=== PATIENT | male | born 1945 | race Caucasian/White ===

== ENCOUNTER 2020-04-20 01:06 | Inpatient (IN) | payer MEDICARE, OTHER ==
[~2020-04-20] VITALS: Ht 172.7 cm; Wt 64.8 kg
[2020-04-20] MEDS ORDERED: ASPIRIN CHEWABLE 81 MG TABLET. PO ONE (01:15)
[2020-04-20 01:23] LABS: BASO % 1 % (0-3); EOS # 0.1 x10^3/uL (0.0-0.7); EOS % 2 % (0-3); HEMATOCRIT 30.4 % (39.0-53.0); HEMOGLOBIN 10.8 g/dL (13.0-17.5); LYMPH # 1.8 x10^3/uL (1.0-4.8); LYMPH % 40 % (24-48); MEAN CORPUSCULAR HEMOGLOBIN 35 pg (25-35); MEAN CORPUSCULAR HGB CONC 36 g/dL (31-37); MEAN CORPUSCULAR VOLUME 98 fL (79-100); MONO # 0.7 x10^3/uL (0.0-1.1); MONO % 15 % (0-9); NEUT # 1.9 x10^3/uL (1.8-7.7); NEUT % 42 % (31-73); PLATELET COUNT 167 x10^3/uL (140-400); RED BLOOD COUNT 3.11 x10^6/uL (4.30-5.70); RED CELL DISTRIBUTION WIDTH 12.2 % (11.5-14.5); WHITE BLOOD COUNT 4.5 x10^3/uL (4.0-11.0)
[2020-04-20 01:31] LABS: PROTHROMBIN TIME PATIENT 13.4 SEC (11.7-14.0)
[2020-04-20 01:34] LABS: D-DIMER 0.99 ug/mlFEU (0.00-0.50)
[2020-04-20 01:39] LABS: ALBUMIN 2.6 g/dL (3.4-5.0); ALBUMIN/GLOBULIN RATIO 1.2 (1.0-1.7); CALCIUM 8.4 mg/dL (8.5-10.1); CREATININE 0.6 mg/dL (0.7-1.3); GFR 132.1; TOTAL BILIRUBIN 0.5 mg/dL (0.2-1.0); TOTAL PROTEIN 4.8 g/dL (6.4-8.2)
[2020-04-20 01:43] LABS: POTASSIUM 2.4 mmol/L (3.5-5.1)
[2020-04-20] MEDS ORDERED: POTASSIUM CHLORIDE 20MEQ 100 ML IV SCH (01:45)
--- NOTE | 2020-04-20 01:46 | RAD ---
PQRS Compliance Statement: One or more of the following individualized dose reduction techniques were utilized for this examinat ion: 1. Automated exposure control 2. Adjustment of the mA and/or kV according to patient size 3. Use of iterative reconstruction technique CT HEAD WITHOUT CONTRAST History: Reason: fall / Spl. Instructions: / History: Comparison: None. Technique: Axial images are obtained of the head from the skull base through the vertex without IV co ntrast. Findings: No mass-effect, midline shift, extra-axial fluid collection, hemorrhage, or obvious acute infarction is identified. Basilar cisterns are patent. The ventricles and sulci are prominent, consistent with age-related cerebral atrophy. There is perive ntricular white matter hypoattenuation. This is a nonspecific finding but is commonly due to chronic small vessel ischemic disease. Bone windows demonstrate no acute calvarial abnormality. The visualized paranasal sinuses are clear. Mastoid air cells are well aerated. IMPRESSION: 1. No acute intracranial abnormality. 2. Age-related cerebral atrophy and periventricular white matter changes probably due to chronic sma ll vessel ischemic disease. Electronically signed by: Cirilo Abdul MD (04/20/2020 1:44 AM) [facility]
[2020-04-20 02:00] LABS: BILIRUBIN,URINE NEGATIVE (NEG); CLARITY,URINE CLEAR; COLOR,URINE YELLOW; NITRITE,URINE NEGATIVE (NEG); PH,URINE 6.5 (<5.0-8.0); PROTEIN,URINE NEGATIVE (NEG-TRACE); UROBILINOGEN,URINE 0.2 mg/dL (0.2 mg/dL)
[2020-04-20] MEDS ORDERED: MORPHINE SULFATE 4 MG/ML VIAL. IV ONE (02:00)
[2020-04-20] MEDS: POTASSIUM CHLORIDE 10MEQ 100 ML IV SCH ×10 (02:10→16:00)
[2020-04-20 02:19] LABS: AMORPHOUS SEDIMENT,UR PRESENT /HPF; BACTERIA,URINE 0 /HPF (0-FEW); RBC,URINE 0 /HPF (0-2)
--- NOTE | 2020-04-20 02:27 | RAD ---
XR CHEST 1V Clinical Indication: Reason: chest pain Comparison: None. Findings: Atherosclerotic aortic arch. The cardiomediastinal silhouette is normal. Pulmonary vasculature upper limits of normal. Lungs are clear. There is no pneumothorax. No pleural effusion is appreciated. No a cute bone abnormality. IMPRESSION: No acute cardiopulmonary process. Electronically signed by: Cirilo Abdul MD (04/20/2020 2:25 AM) [facility]
--- NOTE | 2020-04-20 02:32 | EKG ---
[facility] [address] [place] [address] Test Date: 2020-04-20 Test Time: 01:14:37 Pat Name: SATHISH SMYTH Department: Room: Gender: M Instruction Assistant Principal: : 1945 Requested By: SARAH IRENE Order Number: [id number] Reading MD: Measurements Intervals [place] Rate: 68 P: 60 SD: 144 QRS: 80 QRSD: 106 T: 63 QT: 488 QTc: 525 Interpretive Statements SINUS RHYTHM VENTRICULAR PREMATURE COMPLEX(ES) QRS(T) CONTOUR ABNORMALITY CONSIDER ANTEROLATERAL MYOCARDIAL DAMAGE CONSIDER INFERIOR MYOCARDIAL DAMAGE PROLONGED QT ABNORMAL ECG RI6.01 No previous ECG available for comparison
--- NOTE | 2020-04-20 02:34 | EKG ---
[facility] [address] [place] [address] Test Date: 2020-04-20 Test Time: 01:18:57 Pat Name: SATHISH SMYTH Department: Room: Gender: M Inpatient Pharmacist: : 1945 Requested By: SARAH IRENE Order Number: [id number] Reading MD: Measurements Intervals [place] Rate: 70 P: 60 DE: 148 QRS: 81 QRSD: 106 T: 74 QT: 474 QTc: 515 Interpretive Statements SINUS RHYTHM ATRIAL PREMATURE COMPLEX(ES) PROLONGED QT NO SPECIFIC ECG ABNORMALITIES RI6.01 Compared to ECG 04/20/2020 01:14:37 No significant changes
--- NOTE | 2020-04-20 03:28 | PHYS DOC ---
Past Medical History Past Medical History: Alcoholism, High Cholesterol, Hypertension, [place] Past Surgical History: Other Additional Past Surgical Histo: Stent placement Smoking Status: Unknown if ever smoked Alcohol Use: Heavy Adult General Chief Complaint Chief Complaint: CHEST PAIN HPI HPI Patient is a 74 year old male with a known past medical history including alcoholism and hypertension now presenting emergency department after reported syncopal episode. According to EMS they were called and the patient has been complaining of chest pain and then had a near syncopal event while at home. States that the family found him on the ground where he became slightly unconscious and then dated that he had chest compressions and give the patient a sublingual nitroglycerin. Upon arrival EMS stated that the patient was arousable and her x1. Uncertain the patient had a fall. Patient is complaining of pain everywhere stating that "everything hurts and I feel terrible everywhere." Patient does admit to chest pain but cannot remember if he fell either. Patient appears to be a poor historian at this time. Review of Systems Review of Systems Constitutional: Denies fever or chills [] Eyes: Denies change in visual acuity, redness, or eye pain [] HENT: Denies nasal congestion or sore throat [] Respiratory: Denies cough or shortness of breath [] Cardiovascular: No additional information not addressed in HPI [] GI: Denies abdominal pain, nausea, vomiting, bloody stools or diarrhea [] : Denies dysuria or hematuria [] Musculoskeletal: Denies back pain or joint pain [] Integument: Denies rash or skin lesions [] Neurologic: Denies headache, focal weakness or sensory changes [] Endocrine: Denies polyuria or polydipsia [] All other systems were reviewed and found to be within normal limits, except as documented in this note. Current Medications Current Medications Current Medications Medications (Trade) Dose Ordered Sig/Terry Start Time Stop Time Status Last Admin Dose Admin Aspirin (Aspirin Chewable) 324 mg 1X ONCE 04/20/20 01:15 04/20/20 01:25 DC Morphine Sulfate (Morphine Sulfate) 2 mg 1X ONCE 04/20/20 03:30 04/20/20 03:31 04/20/20 03:16 2 MG Potassium Chloride/Water 100 ml @ 100 mls/hr Q1H 04/20/20 02:00 04/20/20 05:59 04/20/20 02:56 100 MLS/HR Allergies Allergies Allergies Coded Allergies Type Severity Reaction Last Updated Verified No Known Drug Allergies 04/20/20 No Physical Exam Physical Exam Constitutional: Well developed, well nourished, no acute distress, non-toxic appearance. [] HENT: Normocephalic, atraumatic, bilateral external ears normal, oropharynx moist, no oral exudates, nose normal. [] Eyes: PERRLA, EOMI, conjunctiva normal, no discharge. [] Neck: Normal range of motion, no tenderness, supple, no stridor. [] Cardiovascular:Heart rate regular rhythm, no murmur [] Lungs & Thorax: Bilateral breath sounds clear to auscultation [] Abdomen: Bowel sounds normal, soft, no tenderness, no masses, no pulsatile masses. [] Skin: Warm, dry, no erythema, no rash. [] Back: No tenderness, no CVA tenderness. [] Extremities: No tenderness, no cyanosis, no clubbing, ROM intact, no edema. [] Neurologic: Alert and oriented X 3, normal motor function, normal sensory function, no focal deficits noted. [] Psychologic: Affect normal, judgement normal, mood normal. [] Current Patient Data Vital Signs Vital Signs Date Time Temp Pulse Resp B/P (MAP) Pulse Ox O2 Delivery O2 Flow Rate FiO2 04/20/20 03:16 98 04/20/20 02:40 68 18 126/59 (81) Nasal Cannula 2.0 04/20/20 01:06 97.6 97.6 Lab Values Laboratory Tests Test 04/20/20 01:12 04/20/20 01:50 White Blood Count 4.5 x10^3/uL (4.0-11.0) Red Blood Count 3.11 x10^6/uL (4.30-5.70) L Hemoglobin 10.8 g/dL (13.0-17.5) L Hematocrit 30.4 % (39.0-53.0) L Mean Corpuscular Volume 98 fL (79-100) Mean Corpuscular Hemoglobin 35 pg (25-35) Mean Corpuscular Hemoglobin Concent 36 g/dL (31-37) Red Cell Distribution Width 12.2 % (11.5-14.5) Platelet Count 167 x10^3/uL (140-400) Neutrophils (%) (Auto) 42 % (31-73) Lymphocytes (%) (Auto) 40 % (24-48) Monocytes (%) (Auto) 15 % (0-9) H Eosinophils (%) (Auto) 2 % (0-3) Basophils (%) (Auto) 1 % (0-3) Neutrophils # (Auto) 1.9 x10^3/uL (1.8-7.7) Lymphocytes # (Auto) 1.8 x10^3/uL (1.0-4.8) Monocytes # (Auto) 0.7 x10^3/uL (0.0-1.1) Eosinophils # (Auto) 0.1 x10^3/uL (0.0-0.7) Basophils # (Auto) 0.0 x10^3/uL (0.0-0.2) Prothrombin Time 13.4 SEC (11.7-14.0) Prothrombin Time INR 1.1 (0.8-1.1) D-Dimer (Bev) 0.99 ug/mlFEU (0.00-0.50) H Sodium Level 123 mmol/L (136-145) L Potassium Level 2.4 mmol/L (3.5-5.1) *L Chloride Level 86 mmol/L (98-107) L Carbon Dioxide Level 24 mmol/L (21-32) Anion Gap 13 (6-14) Blood Urea Nitrogen 10 mg/dL (8-26) Creatinine 0.6 mg/dL (0.7-1.3) L Estimated GFR (Cockcroft-Gault) 132.1 BUN/Creatinine Ratio 17 (6-20) Glucose Level 95 mg/dL (70-99) Calcium Level 8.4 mg/dL (8.5-10.1) L Magnesium Level 1.0 mg/dL (1.8-2.4) L Total Bilirubin 0.5 mg/dL (0.2-1.0) Aspartate Amino Transferase (AST) 27 U/L (15-37) Alanine Aminotransferase (ALT) 28 U/L (16-63) Alkaline Phosphatase 42 U/L (46-116) L Creatine Kinase 84 U/L (39-308) Troponin I Quantitative 0.022 ng/mL (0.000-0.055) SL-Wky-E-Type Natriuretic Peptide 743 pg/mL (0-124) H Total Protein 4.8 g/dL (6.4-8.2) L Albumin 2.6 g/dL (3.4-5.0) L Albumin/Globulin Ratio 1.2 (1.0-1.7) Lipase 293 U/L (73-393) Ethyl Alcohol Level 101 mg/dL (0-10) H Urine Collection Type Unknown Urine Color Yellow Urine Clarity Clear Urine pH 6.5 (<5.0-8.0) Urine Specific [place] <=1.005 (1.000-1.030) Urine Protein Negative mg/dL (NEG-TRACE) Urine Glucose (UA) Negative mg/dL (NEG) Urine Ketones (Stick) Negative mg/dL (NEG) Urine Blood Negative (NEG) Urine Nitrite Negative (NEG) Urine Bilirubin Negative (NEG) Urine Urobilinogen Dipstick 0.2 mg/dL (0.2 mg/dL) Urine Leukocyte Esterase Negative (NEG) Urine RBC 0 /HPF (0-2) Urine WBC 1-4 /HPF (0-4) Urine Squamous Epithelial Cells Few /LPF Urine Amorphous Sediment Present /HPF Urine Bacteria 0 /HPF (0-FEW) Laboratory Tests 04/20/20 01:12 Laboratory Tests 04/20/20 01:12 EKG EKG [] Radiology/Procedures Radiology/Procedures [] Course & Med Decision Making Course & Med Decision Making Pertinent Labs and Imaging studies reviewed. (See chart for details) 74M presenting the emergency department after apparent syncopal episode of uncertain etiology. The patient fell and potentially struck his head will obtain a CT scan of the head to make sure there is no evidence of intracranial hemorrhage. Also to a broad work-up to make sure there is no evidence of acute coronary or infectious etiology. 0346 -labs reviewed and the patient is noted to have a severe hyperkalemia as well as what appears to be hyponatremia hypochloremia possibly secondary to alcohol consumption or dehydration. At this time given the patient's age and risk factors best course of action is to admit the patient for observation to make sure there is no dangerous cause of the patient's syncopal event. Dragon Disclaimer Dragon Disclaimer This electronic medical record was generated, in whole or in part, using a voice recognition dictation system. Departure Departure Impression: Primary Impression: Chest pain Disposition: 09 ADMITTED INPT THIS HOSP Condition: GOOD Referrals: UNKNOWN PCP NAME (PCP) SARAH IRENE MD Apr 20, 2020 03:28
[2020-04-20] MEDS ORDERED: ONDANSETRON PF 4 MG/2 ML VIAL. IV PRN (03:30)
[2020-04-20] MEDS ORDERED: MORPHINE SULFATE 2 MG/ML VIAL. IV ONE (03:30)
[2020-04-20] MEDS ORDERED: MORPHINE SULFATE 4 MG/ML VIAL. IV PRN (03:30)
[2020-04-20 05:00] VITALS: BP 134/63
--- NOTE | 2020-04-20 05:50 | EKG ---
[facility] [address] [place] [address] Test Date: 2020-04-20 Test Time: 02:45:13 Pat Name: SATHISH SMYTH Department: Room: Gender: M Clinic Supervisor: : 1945 Requested By: SARAH IRENE Order Number: [id number] Reading MD: Measurements Intervals [place] Rate: 65 P: HI: QRS: 79 QRSD: 110 T: 63 QT: 480 QTc: 500 Interpretive Statements IRREGULAR RHYTHM, NO P-WAVE FOUND VENTRICULAR PREMATURE COMPLEX(ES) PROLONGED QT ABNORMAL ECG RI6.02 No previous ECG available for comparison
[2020-04-20 07:00] VITALS: BP 144/79
--- NOTE | 2020-04-20 08:00 | NUR ---
At approximately 0515, patient was admitted to from the ED. Patient alert to self and situation. Patient not alert to time or place. Bed locked and in low position. Call light within reach and bed alarm on. All vital signs stable with patient on 2 L NC and O2 sats 97-100%. Patient resting comfortably in bed. No other concerns at this time.
--- NOTE | 2020-04-20 08:11 | PDOC1 ---
History and Physical Date of Service: DOS: DATE: 04/20/20 TIME: 08:09 Chief Complaint: Chief Complain: unresponsive and chest pain History of Present Illness: HPI: 74 year old male with a known past medical history including alcoholism and hypertension now presenting emergency department after reported syncopal episode. According to EMS they were called and the patient has been complaining of chest pain and then had a near syncopal event while at home. States that the family found him on the ground where he became slightly unconscious and then stated that he had chest compressions and give the patient a sublingual nitroglycerin. Upon arrival EMS stated that the patient was arousable and her x1. Uncertain the patient had a fall. Patient is complaining of pain everywher e stating that "everything hurts and I feel terrible everywhere." Patient does admit to chest pain but cannot remember if he fell either. Patient appears to be a poor historian at this time. Past Medical/Surgical History: PMH/PSH: Past Medical History: Alcoholism, High Cholesterol, Hypertension, [place] Past Surgical History: Stent placement Allergies: Allergies: Coded Allergies: No Known Drug Allergies (Unverified , 04/20/20) Family History: Family History: Reviewed with no relevant findings Social History: Social History: Smoking Status: Unknown if ever smoked Alcohol Use: Heavy Current Medications: Current Medications Current Medications Aspirin (Aspirin Chewable) 324 mg 1X ONCE PO ; Start 04/20/20 at 01:15; Stop 04/20/20 at 01:25; Status DC Morphine Sulfate (Morphine Sulfate) 4 mg 1X ONCE IV Last administered on 04/20/20at 02:19; Start 04/20/20 at 02:00; Stop 04/20/20 at 02:02; Status DC Potassium Chloride/Water 100 ml @ 100 mls/hr Q1H IV ; Start 04/20/20 at 01:45; Stop 04/20/20 at 03:44; Status UNV Potassium Chloride/Water 100 ml @ 100 mls/hr Q1H IV Last administered on 04/20/20at 06:54; Start 04/20/20 at 02:00; Stop 04/20/20 at 05:59; Status DC Morphine Sulfate (Morphine Sulfate) 2 mg 1X ONCE IV Last administered on 04/20/20at 03:16; Start 04/20/20 at 03:30; Stop 04/20/20 at 03:31; Status DC Ondansetron HCl (Zofran) 4 mg PRN Q8HRS PRN IV NAUSEA/VOMITING 1ST CHOICE; Start 04/20/20 at 03:30; Stop 04/21/20 at 03:29 Morphine Sulfate (Morphine Sulfate) 4 mg PRN Q2HR PRN IV SEVERE PAIN 7-10 Last administered on 04/20/20at 04:25; Start 04/20/20 at 03:30; Stop 04/21/20 at 03:29 Lorazepam (Ativan Inj) 2 mg PRN Q15MIN PRN IV SEE COMMENTS; Start 04/20/20 at 06:15; Status UNV Lorazepam (Ativan Inj) 4 mg PRN Q15MIN PRN IV SEE COMMENTS; Start 04/20/20 at 06:15; Status UNV Lorazepam (Ativan Inj) 2 mg PRN Q1HR PRN IV For CIWA 8-14 Last administered on 04/20/20at 06:54; Start 04/20/20 at 06:30 Lorazepam (Ativan Inj) 4 mg PRN Q1HR PRN IV For CIWA 15 or greater; Start 04/20/20 at 06:30 ROS: Review of Systems Review of System REVIEW OF SYSTEMS: GENERAL: Denies weakness SKIN: No bruising, hair changes or rashes. EYES: No blurred, double or loss of vision. NOSE AND THROAT: No history of nosebleeds, hoarseness or sore throat. HEART: No history of palpitations, chest pain or shortness of breath on exertion. LUNGS: Denies cough, hemoptysis, wheezing or shortness of breath. GASTROINTESTINAL: Denies changes in appetite, nausea, vomiting, diarrhea or constipation. GENITOURINARY: No history of frequency, urgency, hesitancy or nocturia. NEUROLOGIC: Denies history of numbness, tingling, or tremor. PSYCHIATRIC: No history of panic, anxiety or depression. ENDOCRINE: No history of heat or cold intolerance, polyuria or polydipsia. EXTREMITIES: Denies joint pain, pain on walking or stiffness. Physical Exam: Vital Signs: Vital Signs Date Time Temp Pulse Resp B/P (MAP) Pulse Ox O2 Delivery O2 Flow Rate FiO2 04/20/20 07:00 97.7 68 20 144/79 (100) 100 Room Air 97.7 04/20/20 05:15 2.0 Physcial Exam: GEN: No apparent distress. Alert and oriented HEENT: Normal cephalic, atraumatic, external auditory canals are patent EYES: Extraocular muscles are intact, pupil are equally round and reactive to light and accommodation MUSCULOSKELETAL: Well developed , well nourished, good range of motion ENDOCRINE: No thyromegaly was palpated LYMPHATICS: No cervical chain or axillary nodes were noted HEMATOPOIETIC: No bruising NECK: Supple, no JVD, no thyromegaly was noted LUNGS: Clear to auscultation in all lung leonardo without rhonchi or wheezing HEART: RRR, S!, S2 present. Peripheral pulses intact, no obvious murmurs noted ABDOMEN: Soft, nontender. Positive bowel sounds, no organomegaly, normal bowel sounds EXTREMITIES: Without clubbing, cyanosis, or edema. Pedal pulses intact. Negative Homans sign NEUROLOGIC: Normal speech and tone. A&O x 3, moves all extremities, no obvious focal deficits PSYCHIATRIC: Normal affect, normal mood. Stable SKIN: No ulcerations or rashes, good skin turgor, no jaundice VASCULAR: Good capillary refill, neurovascular bundle appears to be intact Labs: Labs: Laboratory Tests Test 04/20/20 01:12 04/20/20 01:50 04/20/20 04:22 04/20/20 06:45 White Blood Count 4.5 x10^3/uL (4.0-11.0) Red Blood Count 3.11 x10^6/uL (4.30-5.70) Hemoglobin 10.8 g/dL (13.0-17.5) Hematocrit 30.4 % (39.0-53.0) Mean Corpuscular Volume 98 fL (79-100) Mean Corpuscular Hemoglobin 35 pg (25-35) Mean Corpuscular Hemoglobin Concent 36 g/dL (31-37) Red Cell Distribution Width 12.2 % (11.5-14.5) Platelet Count 167 x10^3/uL (140-400) Neutrophils (%) (Auto) 42 % (31-73) Lymphocytes (%) (Auto) 40 % (24-48) Monocytes (%) (Auto) 15 % (0-9) Eosinophils (%) (Auto) 2 % (0-3) Basophils (%) (Auto) 1 % (0-3) Neutrophils # (Auto) 1.9 x10^3/uL (1.8-7.7) Lymphocytes # (Auto) 1.8 x10^3/uL (1.0-4.8) Monocytes # (Auto) 0.7 x10^3/uL (0.0-1.1) Eosinophils # (Auto) 0.1 x10^3/uL (0.0-0.7) Basophils # (Auto) 0.0 x10^3/uL (0.0-0.2) Prothrombin Time 13.4 SEC (11.7-14.0) Prothromb Time International Ratio 1.1 (0.8-1.1) D-Dimer (Bev) 0.99 ug/mlFEU (0.00-0.50) Sodium Level 123 mmol/L (136-145) Potassium Level 2.4 mmol/L (3.5-5.1) Chloride Level 86 mmol/L (98-107) Carbon Dioxide Level 24 mmol/L (21-32) Anion Gap 13 (6-14) Blood Urea Nitrogen 10 mg/dL (8-26) Creatinine 0.6 mg/dL (0.7-1.3) Estimated GFR (Cockcroft-Gault) 132.1 BUN/Creatinine Ratio 17 (6-20) Glucose Level 95 mg/dL (70-99) Calcium Level 8.4 mg/dL (8.5-10.1) Magnesium Level 1.0 mg/dL (1.8-2.4) Total Bilirubin 0.5 mg/dL (0.2-1.0) Aspartate Amino Transf (AST/SGOT) 27 U/L (15-37) Alanine Aminotransferase (ALT/SGPT) 28 U/L (16-63) Alkaline Phosphatase 42 U/L (46-116) Creatine Kinase 84 U/L (39-308) Troponin I Quantitative 0.022 ng/mL (0.000-0.055) < 0.017 ng/mL (0.000-0.055) 0.019 ng/mL (0.000-0.055) PO-Cjc-E-Type Natriuretic Peptide 743 pg/mL (0-124) Total Protein 4.8 g/dL (6.4-8.2) Albumin 2.6 g/dL (3.4-5.0) Albumin/Globulin Ratio 1.2 (1.0-1.7) Lipase 293 U/L (73-393) Ethyl Alcohol Level 101 mg/dL (0-10) Urine Collection Type Unknown Urine Color Yellow Urine Clarity Clear Urine pH 6.5 (<5.0-8.0) Urine Specific [place] <=1.005 (1.000-1.030) Urine Protein Negative mg/dL (NEG-TRACE) Urine Glucose (UA) Negative mg/dL (NEG) Urine Ketones (Stick) Negative mg/dL (NEG) Urine Blood Negative (NEG) Urine Nitrite Negative (NEG) Urine Bilirubin Negative (NEG) Urine Urobilinogen Dipstick 0.2 mg/dL (0.2 mg/dL) Urine Leukocyte Esterase Negative (NEG) Urine RBC 0 /HPF (0-2) Urine WBC 1-4 /HPF (0-4) Urine Squamous Epithelial Cells Few /LPF Urine Amorphous Sediment Present /HPF Urine Bacteria 0 /HPF (0-FEW) Laboratory Tests Test 04/20/20 01:12 04/20/20 01:50 04/20/20 04:22 04/20/20 06:45 White Blood Count 4.5 x10^3/uL (4.0-11.0) Red Blood Count 3.11 x10^6/uL (4.30-5.70) Hemoglobin 10.8 g/dL (13.0-17.5) Hematocrit 30.4 % (39.0-53.0) Mean Corpuscular Volume 98 fL (79-100) Mean Corpuscular Hemoglobin 35 pg (25-35) Mean Corpuscular Hemoglobin Concent 36 g/dL (31-37) Red Cell Distribution Width 12.2 % (11.5-14.5) Platelet Count 167 x10^3/uL (140-400) Neutrophils (%) (Auto) 42 % (31-73) Lymphocytes (%) (Auto) 40 % (24-48) Monocytes (%) (Auto) 15 % (0-9) Eosinophils (%) (Auto) 2 % (0-3) Basophils (%) (Auto) 1 % (0-3) Neutrophils # (Auto) 1.9 x10^3/uL (1.8-7.7) Lymphocytes # (Auto) 1.8 x10^3/uL (1.0-4.8) Monocytes # (Auto) 0.7 x10^3/uL (0.0-1.1) Eosinophils # (Auto) 0.1 x10^3/uL (0.0-0.7) Basophils # (Auto) 0.0 x10^3/uL (0.0-0.2) Prothrombin Time 13.4 SEC (11.7-14.0) Prothromb Time International Ratio 1.1 (0.8-1.1) D-Dimer (Bev) 0.99 ug/mlFEU (0.00-0.50) Sodium Level 123 mmol/L (136-145) Potassium Level 2.4 mmol/L (3.5-5.1) Chloride Level 86 mmol/L (98-107) Carbon Dioxide Level 24 mmol/L (21-32) Anion Gap 13 (6-14) Blood Urea Nitrogen 10 mg/dL (8-26) Creatinine 0.6 mg/dL (0.7-1.3) Estimated GFR (Cockcroft-Gault) 132.1 BUN/Creatinine Ratio 17 (6-20) Glucose Level 95 mg/dL (70-99) Calcium Level 8.4 mg/dL (8.5-10.1) Magnesium Level 1.0 mg/dL (1.8-2.4) Total Bilirubin 0.5 mg/dL (0.2-1.0) Aspartate Amino Transf (AST/SGOT) 27 U/L (15-37) Alanine Aminotransferase (ALT/SGPT) 28 U/L (16-63) Alkaline Phosphatase 42 U/L (46-116) Creatine Kinase 84 U/L (39-308) Troponin I Quantitative 0.022 ng/mL (0.000-0.055) < 0.017 ng/mL (0.000-0.055) 0.019 ng/mL (0.000-0.055) EL-Pha-Z-Type Natriuretic Peptide 743 pg/mL (0-124) Total Protein 4.8 g/dL (6.4-8.2) Albumin 2.6 g/dL (3.4-5.0) Albumin/Globulin Ratio 1.2 (1.0-1.7) Lipase 293 U/L (73-393) Ethyl Alcohol Level 101 mg/dL (0-10) Urine Collection Type Unknown Urine Color Yellow Urine Clarity Clear Urine pH 6.5 (<5.0-8.0) Urine Specific [place] <=1.005 (1.000-1.030) Urine Protein Negative mg/dL (NEG-TRACE) Urine Glucose (UA) Negative mg/dL (NEG) Urine Ketones (Stick) Negative mg/dL (NEG) Urine Blood Negative (NEG) Urine Nitrite Negative (NEG) Urine Bilirubin Negative (NEG) Urine Urobilinogen Dipstick 0.2 mg/dL (0.2 mg/dL) Urine Leukocyte Esterase Negative (NEG) Urine RBC 0 /HPF (0-2) Urine WBC 1-4 /HPF (0-4) Urine Squamous Epithelial Cells Few /LPF Urine Amorphous Sediment Present /HPF Urine Bacteria 0 /HPF (0-FEW) Images: Images HEAD CT IMPRESSION: 1. No acute intracranial abnormality. 2. Age-related cerebral atrophy and periventricular white matter changes probably due to chronic small vessel ischemic disease. CXR No acute cardiopulmonary process Assessment/Plan Assessment/Plan Acute toxic and metabolic encephalopathy Acute delirium or confusional state due to infectious versus toxic versus metabolic disturbance Acute chest pain Acute electrolyte derangementhyponatremia, hypokalemia EtOH abuse Near syncope No obvious centrally acting medications currently. No obvious signs of infection on physical exam. No fevers or nuchal rigidity. CT head is negative for acute etiology. No history or signs of trauma Pending TSH, B12, folate levels Pending urine toxic drug screen Consider dementia prevention protocol Provide adequate lighting (open curtains during the day, turn the lights off at night) Provide frequent personal contact with family, friends, and staff or TV Encourage early and frequent mobilization Rehab screening ordered IV Haldol as needed for agitation, consider sitter as needed if non-redirectable agitation Avoid physical restraints, catheters or tubes, and benzodiazepines Nutrition consult if there is malnutrition or concern for vitamin deficiencies Continue IV fluids Cardiology consult for chest pain Lovenox for DVT prophylaxis Protonix GI prophylaxis ADA diet Full code Discussed with RN and SW Dispo inpatient management as above Justifications for Admission Other Justification LOWELL DOCKERY MD Apr 20, 2020 08:11
[2020-04-20] MEDS ORDERED: TRAZ-118 PO (10:15)
[2020-04-20] MEDS ORDERED: ASPI81TA59 PO (10:15)
[2020-04-20] MEDS ORDERED: FURO-69 PO (10:15)
[2020-04-20] MEDS ORDERED: LISI20TA18 PO (10:15)
[2020-04-20] MEDS ORDERED: BUPR100T7 PO (10:15)
[2020-04-20] MEDS ORDERED: DONE10TA7 PO (10:15)
[2020-04-20 10:46] VITALS: BP 145/70
[2020-04-20] MEDS: NORMAL SALINE IV SCH ×2 (11:00→16:01)
[2020-04-20] MEDS: THIAMINE IV SCH ×2 (11:00→16:01)
[2020-04-20] MEDS: FOLIC ACID IV SCH ×2 (11:00→16:01)
[2020-04-20] MEDS ORDERED: DOCUSATE SODIUM 100 MG CAPSULE. PO PRN (12:00)
[2020-04-20] MEDS ORDERED: ONDANSETRON PF 4 MG/2 ML VIAL. IVP PRN (12:00)
[2020-04-20] MEDS ORDERED: DEXTROSE 50% 25 GM / 50ML DISP.SYRIN. IV PRN (12:00)
[2020-04-20] MEDS ORDERED: SENNOSIDES 8.6 MG TABLET PO PRN (12:00)
--- NOTE | 2020-04-20 14:14 | NUR ---
SS following for discharge planning planning. SS reviewed pt chart and discussed with pt RN. Pt is from home with family and is currently on room air. ETOH. Pt on CIWA protocol. Per RN, pt drinks six pack of beer daily. PAT team referral made for assessment and recommendations. Pt not stable to be seen today. Gisele from PAT team coming to meet with pt tomorrow. SS will continue to follow for discharge planning.
[2020-04-20] MEDS ORDERED: MAGNESIUM SULFATE 4GM 100 ML IV ONE (14:15)
[2020-04-20] MEDS ORDERED: PANTOPRAZOLE 40 MG TABLET.DR. PO ONE (14:15)
--- NOTE | 2020-04-20 14:18 | PDOC2 ---
VIC THOMPSON CAR SEAT COVERER 04/20/20 1418: CARDIAC CONSULT DATE OF CONSULT Date of Consult DATE: 04/20/20 TIME: 13:59 REASON FOR CONSULT Reason for Consult: Chest pain REFERRING PHYSICIAN Referring Physician: Jose SOURCE Source: Chart review, Patient HISTORY OF PRESENT ILLNESS HISTORY OF PRESENT ILLNESS This is a 74 yo male admitted for complains of possibly passing out and fall. Spouse reports that pt is a heavy ETOH drinker and seldom he eats a full meal and does not eat much but drinks beer heavily and smoke tobacco. He displays periods of agitation and has been resistant to following up with his PCP at the [facility] but has not been following up with any java j2ee architect. He has been complaining of body aches lately but no specific chest pain. He has fallen multiple times with unsteady gait and failure to use his ambulatory device. No hx of seizures but yesterday he was noted standing up and was displaying facial movements at times sticking out his tongue for no reason and was caught while falling. He was noted to be unconscious with urinary incontinence. He was then given NTG SL by his family thinking that this is a heart attack. He has been having SOA at times but no exertional chest pain. No nausea or vomiting and no diarrhea. No hx of arrhythmia, CVA, VTE but has hx of CAD with remote stent. Presently he is drowsy but arousable. PAST MEDICAL HISTORY Cardiovascular: CAD, HTN, Hyperlipidemia Pulmonary: COPD CENTRAL NERVOUS SYSTEM: Dementia GI: Constipation Heme/Onc: Cancer (skin) Hepatobiliary: No pertinent hx Psych: Other (alcoholism) Musculoskeletal: Osteoarthritis Rheumatologic: No pertinent hx Infectious disease: No pertinent hx ENT: Other (ptosis) Renal/: No pertinent hx Endocrine: No pertinent hx Dermatology: Other (skin CA) PAST SURGICAL HISTORY Past Surgical History: Other (eye surgery; PCI; skin CA excision) FAMILY HISTORY Family History: Family History Unknown SOCIAL HISTORY Smoke: <1 pack per day ALCOHOL: heavy Drugs: None Lives: with Family CURRENT MEDICATIONS CURRENT MEDICATIONS Current Medications Medications (Trade) Dose Ordered Sig/Terry Route PRN Reason Start Time Stop Time Status Last Admin Dose Admin Morphine Sulfate (Morphine Sulfate) 4 mg 1X ONCE IV 04/20/20 02:00 04/20/20 02:02 DC 04/20/20 02:19 Potassium Chloride/Water 100 ml @ 100 mls/hr Q1H IV 04/20/20 02:00 04/20/20 05:59 DC 04/20/20 06:54 Morphine Sulfate (Morphine Sulfate) 2 mg 1X ONCE IV 04/20/20 03:30 04/20/20 03:31 DC 04/20/20 03:16 Morphine Sulfate (Morphine Sulfate) 4 mg PRN Q2HR PRN IV SEVERE PAIN 7-10 04/20/20 03:30 04/21/20 03:29 04/20/20 04:25 Lorazepam (Ativan Inj) 2 mg PRN Q1HR PRN IV For CIWA 8-14 04/20/20 06:30 04/20/20 06:54 Thiamine HCl 300 mg/Folic Acid 1 mg/Sodium Chloride 1,003.2 ml @ 200 mls/ hr Q5H1M IV 04/20/20 11:00 04/20/20 21:01 04/20/20 11:00 Potassium Chloride/Water 100 ml @ 50 mls/hr Q1HR IV 04/20/20 11:00 04/20/20 16:59 04/20/20 12:00 ALLERGIES ALLERGIES: Coded Allergies: No Known Drug Allergies (Unverified , 04/20/20) ROS Review of System unreliable PHYSICAL EXAM General: No acute distress, Other (drowsy but aroudable) HEENT: Atraumatic, Mucous membr. moist/pink Lungs: Clear to auscultation, Normal air movement, Other Heart: Regular rate (SR with PVCs), Normal S1, Normal S2, No murmurs Abdomen: Soft, No tenderness Extremities: No cyanosis, No edema Skin: Other (back bruising and arm ecchymoses) Neuro: Sensation intact Psych/Mental Status: Other (drowsy) MUSCULOSKELETAL: Osteoarthritic changes both hands VITALS/I&O VITALS/I&O: Vital Signs Date Time Temp Pulse Resp B/P (MAP) Pulse Ox O2 Delivery O2 Flow Rate FiO2 04/20/20 10:46 97.4 83 20 145/70 (95) 97 Room Air 97.4 04/20/20 08:00 2.0 I & O 04/19/20 04/19/20 04/20/20 15:00 23:00 07:00 Intake Total 200 ml Balance 200 ml LABS Lab: Laboratory Tests Test 04/20/20 01:12 1/29/21 01:50 04/20/20 04:22 04/20/20 06:45 White Blood Count 4.5 x10^3/uL (4.0-11.0) Red Blood Count 3.11 x10^6/uL (4.30-5.70) L Hemoglobin 10.8 g/dL (13.0-17.5) L Hematocrit 30.4 % (39.0-53.0) L Mean Corpuscular Volume 98 fL (79-100) Mean Corpuscular Hemoglobin 35 pg (25-35) Mean Corpuscular Hemoglobin Concent 36 g/dL (31-37) Red Cell Distribution Width 12.2 % (11.5-14.5) Platelet Count 167 x10^3/uL (140-400) Neutrophils (%) (Auto) 42 % (31-73) Lymphocytes (%) (Auto) 40 % (24-48) Monocytes (%) (Auto) 15 % (0-9) H Eosinophils (%) (Auto) 2 % (0-3) Basophils (%) (Auto) 1 % (0-3) Neutrophils # (Auto) 1.9 x10^3/uL (1.8-7.7) Lymphocytes # (Auto) 1.8 x10^3/uL (1.0-4.8) Monocytes # (Auto) 0.7 x10^3/uL (0.0-1.1) Eosinophils # (Auto) 0.1 x10^3/uL (0.0-0.7) Basophils # (Auto) 0.0 x10^3/uL (0.0-0.2) Prothrombin Time 13.4 SEC (11.7-14.0) Prothrombin Time INR 1.1 (0.8-1.1) D-Dimer (Bev) 0.99 ug/mlFEU (0.00-0.50) H Sodium Level 123 mmol/L (136-145) L Potassium Level 2.4 mmol/L (3.5-5.1) *L Chloride Level 86 mmol/L (98-107) L Carbon Dioxide Level 24 mmol/L (21-32) Anion Gap 13 (6-14) Blood Urea Nitrogen 10 mg/dL (8-26) Creatinine 0.6 mg/dL (0.7-1.3) L Estimated GFR (Cockcroft-Gault) 132.1 BUN/Creatinine Ratio 17 (6-20) Glucose Level 95 mg/dL (70-99) Calcium Level 8.4 mg/dL (8.5-10.1) L Magnesium Level 1.0 mg/dL (1.8-2.4) L Total Bilirubin 0.5 mg/dL (0.2-1.0) Aspartate Amino Transferase (AST) 27 U/L (15-37) Alanine Aminotransferase (ALT) 28 U/L (16-63) Alkaline Phosphatase 42 U/L (46-116) L Creatine Kinase 84 U/L (39-308) Troponin I Quantitative 0.022 ng/mL (0.000-0.055) < 0.017 ng/mL (0.000-0.055) 0.019 ng/mL (0.000-0.055) ZC-Fmf-W-Type Natriuretic Peptide 743 pg/mL (0-124) H Total Protein 4.8 g/dL (6.4-8.2) L Albumin 2.6 g/dL (3.4-5.0) L Albumin/Globulin Ratio 1.2 (1.0-1.7) Lipase 293 U/L (73-393) Ethyl Alcohol Level 101 mg/dL (0-10) H Urine Collection Type Unknown Urine Color Yellow Urine Clarity Clear Urine pH 6.5 (<5.0-8.0) Urine Specific [place] <=1.005 (1.000-1.030) Urine Protein Negative mg/dL (NEG-TRACE) Urine Glucose (UA) Negative mg/dL (NEG) Urine Ketones (Stick) Negative mg/dL (NEG) Urine Blood Negative (NEG) Urine Nitrite Negative (NEG) Urine Bilirubin Negative (NEG) Urine Urobilinogen Dipstick 0.2 mg/dL (0.2 mg/dL) Urine Leukocyte Esterase Negative (NEG) Urine RBC 0 /HPF (0-2) Urine WBC 1-4 /HPF (0-4) Urine Squamous Epithelial Cells Few /LPF Urine Amorphous Sediment Present /HPF Urine Bacteria 0 /HPF (0-FEW) Laboratory Tests 04/20/20 01:12 Laboratory Tests 04/20/20 01:12 ASSESSMENT/PLAN ASSESSMENT/PLAN 1. Atypical chest pain: trops nml. No CP per se but spouse noted complains of body ache. Doubt ACS 2. Heavy Alcoholism: at least 6 coors light daily with poor nutrition 3. Dementia: on aricept 4. CAD: remote stent, unclear details, clinically stable 5. HTN: controlled 6. Hypokalemia/hypomagnesemia/hyponatremia: 2.4/ respectively mainly due to poor nutrition and ETOH 7. Arrhythmia: prolonged QTc 500-525 due to lyte imbalance. Frequent PVCs due to low Mg/k 9. Possible syncope vs seizure with suspected Wernicke's encephalopathy 10. Multiple falls: recent yesterday and aborted 11. COPD with continued tobaccoism Recommendations 1. Stop lasix and hold lisinopril. Start on PPI. CIWA protocol per PCP. 2. Replace K and Mg. NS with MVI ongoing 3. Continue with ASA. 4. Will check lipids, TSH and TTE 5. Will try to obtain cardiac records. 6. JOHAN FIELDS MD 04/21/20 0920: CARDIAC CONSULT ASSESSMENT/PLAN ASSESSMENT/PLAN Patient seen and examined 04/20/20. Agree with HANDLE SEWER's assessment and plan. Chest pain with atypical features. Myocardial infarction has been ruled out. CAD status clinically stable. Replace potassium and magnesium levels. Check 2D echo to assess LV systolic function. Agree that is near syncopal episodes and falls are related to his alcohol abuse. Monitor for withdrawal symptoms. Thank you for your consultation. VIC THOMPSON APRN Apr 20, 2020 14:18 JOHAN FIELDS MD Apr 21, 2020 09:20
[2020-04-20 14:50] VITALS: BP 142/87
[2020-04-20 15:13] LABS: CALCIUM 8.3 mg/dL (8.5-10.1); CREATININE 0.6 mg/dL (0.7-1.3); GFR 132.1
[2020-04-20] MEDS ORDERED: FAMOTIDINE 20 MG/2 ML VIAL IVP ONE (15:30)
[2020-04-20] MEDS: ENOXAPARIN 40 MG/0.4 ML SYRINGE. SQ SCH (18:11)
[2020-04-20 19:13] VITALS: BP 130/85
[2020-04-20] MEDS: IV RINGERS,LACTATED 1000ML 1,000 ML IV SCH (21:56)
[2020-04-20 22:30] VITALS: BP 154/76
[2020-04-21 02:31] VITALS: BP 125/59
[2020-04-21 05:20] LABS: BASO % 1 % (0-3); EOS # 0.1 x10^3/uL (0.0-0.7); EOS % 1 % (0-3); HEMATOCRIT 34.6 % (39.0-53.0); HEMOGLOBIN 12.2 g/dL (13.0-17.5); LYMPH # 1.5 x10^3/uL (1.0-4.8); LYMPH % 26 % (24-48); MEAN CORPUSCULAR HEMOGLOBIN 35 pg (25-35); MEAN CORPUSCULAR HGB CONC 35 g/dL (31-37); MEAN CORPUSCULAR VOLUME 98 fL (79-100); MONO # 0.6 x10^3/uL (0.0-1.1); MONO % 10 % (0-9); NEUT # 3.6 x10^3/uL (1.8-7.7); NEUT % 62 % (31-73); PLATELET COUNT 203 x10^3/uL (140-400); RED BLOOD COUNT 3.51 x10^6/uL (4.30-5.70); RED CELL DISTRIBUTION WIDTH 12.9 % (11.5-14.5); WHITE BLOOD COUNT 5.8 x10^3/uL (4.0-11.0)
[2020-04-21 05:46] LABS: CALCIUM 7.9 mg/dL (8.5-10.1); CREATININE 0.4 mg/dL (0.7-1.3); GFR 210.9; MAGNESIUM 1.7 mg/dL (1.8-2.4); PHOSPHORUS 2.8 mg/dL (2.6-4.7); POTASSIUM 3.5 mmol/L (3.5-5.1)
[2020-04-21 07:00] VITALS: BP 164/83
[2020-04-21] MEDS: PANTOPRAZOLE 40 MG TABLET.DR. PO SCH (09:21)
[2020-04-21] MEDS: FOLIC ACID 1 MG TABLET. PO SCH (09:21)
[2020-04-21] MEDS: ASPIRIN ENTERIC COATED 81 MG TABLET.DR. PO SCH (09:21)
[2020-04-21] MEDS: LABETALOL 20 MG/4 ML DISP.SYRIN. IVP PRN (09:22)
[2020-04-21] MEDS: THIAMINE INJ 300 MG in IV DEXTROSE 5% 50 ML IV SCH (09:25)
[2020-04-21 11:00] VITALS: BP 138/63
--- NOTE | 2020-04-21 11:42 | PDOC ---
[facility] [facility] PROGRESS NOTE Date of Service DOS: DATE: 04/21/20 TIME: 11:40 Chief Complaint Chief Complaint Acute toxic and metabolic encephalopathy Acute delirium or confusional state due to infectious versus toxic versus metabolic disturbance Acute chest pain Acute electrolyte derangementhyponatremia, hypokalemia EtOH abuse Near syncope No obvious centrally acting medications currently. No obvious signs of infection on physical exam. No fevers or nuchal rigidity. CT head is negative for acute etiology. No history or signs of trauma Pending B12, folate levels Pending urine toxic drug screen Consider dementia prevention protocol Provide adequate lighting (open curtains during the day, turn the lights off at night) Provide frequent personal contact with family, friends, and staff or TV Encourage early and frequent mobilization Rehab screening ordered IV Haldol as needed for agitation, consider sitter as needed if non-redirectable agitation Avoid physical restraints, catheters or tubes, and benzodiazepines Nutrition consult if there is malnutrition or concern for vitamin deficiencies Continue IV fluids Cardiology consult for chest pain Lovenox for DVT prophylaxis Protonix GI prophylaxis ADA diet Full code Discussed with RN and SW Dispo inpatient management as above History of Present Illness History of Present Illness 04/21/2020 No acute events overnight. Patient seen and examined working with physical therapy. Patient able to to transfer from bed to recliner. Patient's chart, labs, images were reviewed and discussed with RN 74 year old male with a known past medical history including alcoholism and hypertension now presenting emergency department after reported syncopal episode. According to EMS they were called and the patient has been complaining of chest pain and then had a near syncopal event while at home. States that the family found him on the ground where he became slightly unconscious and then stated that he had chest compressions and give the patient a sublingual nitroglycerin. Upon arrival EMS stated that the patient was arousable and her x1. Uncertain the patient had a fall. Patient is complaining of pain everywhere stating that "everything hurts and I feel terrible everywhere." Patient does admit to chest pain but cannot remember if he fell either. Patient appears to be a poor historian at this time. Vitals/I&O Vitals/I&O: Vital Signs Date Time Temp Pulse Resp B/P (MAP) Pulse Ox O2 Delivery O2 Flow Rate FiO2 04/21/20 09:22 73 164/83 04/21/20 07:00 97.7 20 100 Nasal Cannula 2.0 97.7 I & O 04/20/20 04/20/20 04/21/20 15:00 23:00 07:00 Intake Total 0 ml 100 ml Output Total 450 ml 925 ml 950 ml Balance -450 ml -925 ml -850 ml Physical Exam General: No acute distress, Other (drowsy but aroudable) Heart: Regular rate (SR with PVCs), Normal S1, Normal S2, No murmurs Abdomen: Soft, No tenderness Extremities: No cyanosis, No edema Skin: Other (back bruising and arm ecchymoses) Labs Labs: Laboratory Tests Test 04/21/20 04:00 White Blood Count 5.8 x10^3/uL (4.0-11.0) Red Blood Count 3.51 x10^6/uL (4.30-5.70) Hemoglobin 12.2 g/dL (13.0-17.5) Hematocrit 34.6 % (39.0-53.0) Mean Corpuscular Volume 98 fL (79-100) Mean Corpuscular Hemoglobin 35 pg (25-35) Mean Corpuscular Hemoglobin Concent 35 g/dL (31-37) Red Cell Distribution Width 12.9 % (11.5-14.5) Platelet Count 203 x10^3/uL (140-400) Neutrophils (%) (Auto) 62 % (31-73) Lymphocytes (%) (Auto) 26 % (24-48) Monocytes (%) (Auto) 10 % (0-9) Eosinophils (%) (Auto) 1 % (0-3) Basophils (%) (Auto) 1 % (0-3) Neutrophils # (Auto) 3.6 x10^3/uL (1.8-7.7) Lymphocytes # (Auto) 1.5 x10^3/uL (1.0-4.8) Monocytes # (Auto) 0.6 x10^3/uL (0.0-1.1) Eosinophils # (Auto) 0.1 x10^3/uL (0.0-0.7) Basophils # (Auto) 0.0 x10^3/uL (0.0-0.2) Sodium Level 131 mmol/L (136-145) Potassium Level 3.5 mmol/L (3.5-5.1) Chloride Level 96 mmol/L (98-107) Carbon Dioxide Level 25 mmol/L (21-32) Anion Gap 10 (6-14) Blood Urea Nitrogen 6 mg/dL (8-26) Creatinine 0.4 mg/dL (0.7-1.3) Estimated GFR (Cockcroft-Gault) 210.9 Glucose Level 73 mg/dL (70-99) Calcium Level 7.9 mg/dL (8.5-10.1) Phosphorus Level 2.8 mg/dL (2.6-4.7) Magnesium Level 1.7 mg/dL (1.8-2.4) Triglycerides Level 65 mg/dL (0-150) Cholesterol Level 200 mg/dL (0-200) LDL Cholesterol, Calculated 87 mg/dL (0-100) VLDL Cholesterol, Calculated 13 mg/dL (0-40) Non-HDL Cholesterol Calculated 100 mg/dL (0-129) HDL Cholesterol 100 mg/dL (40-60) Cholesterol/HDL Ratio 2.0 Assessment and Plan Assessmemt and Plan Problems Medical Problems: (1) Chest pain Status: Acute Comment Review of Relevant I have reviewed the following items cherelle (where applicable) has been applied. Medications: Current Medications Medications (Trade) Dose Ordered Sig/Terry Route PRN Reason Start Time Stop Time Status Last Admin Dose Admin Aspirin (Ecotrin) 81 mg DAILYWBKFT PO 04/21/20 08:00 04/21/20 09:21 Enoxaparin Sodium (Lovenox 40mg Syringe) 40 mg Q24H SQ 04/20/20 16:00 04/20/20 18:11 Magnesium Sulfate 100 ml @ 25 mls/hr 1X ONCE IV 04/20/20 14:15 04/20/20 18:14 DC 04/20/20 14:15 Pantoprazole Sodium (Protonix) 40 mg DAILYAC PO 04/21/20 07:30 04/21/20 09:21 Famotidine (Pepcid Vial) 20 mg 1X ONCE IVP 04/20/20 15:30 04/20/20 15:34 DC 04/20/20 18:11 Labetalol HCl (Normodyne Iv Push) 10 mg PRN Q2HR PRN IVP HYPERTENSION 04/20/20 15:45 04/21/20 09:22 Ringer's Solution 1,000 ml @ 100 mls/hr Q10H IV 04/21/20 04:00 04/20/20 21:56 Thiamine HCl 300 mg/Dextrose 53 ml @ 102 mls/hr DAILY IV 04/21/20 09:00 04/21/20 09:25 Folic Acid (Folic Acid) 1 mg DAILY PO 04/21/20 09:00 04/21/20 09:21 Justifications for Admission Other Justification ACUTE ENCEPHALOPATHY LOWELL DOCKERY MD Apr 21, 2020 11:42
--- NOTE | 2020-04-21 12:49 | PDOC ---
PROGRESS NOTES Date of Service: DATE: 04/21/20 TIME: 12:45 Subjective Subjective Denied any further chest pain. Objective Objective Vital Signs Date Time Temp Pulse Resp B/P (MAP) Pulse Ox O2 Delivery O2 Flow Rate FiO2 04/21/20 11:00 97.4 72 20 138/63 (88) 100 Nasal Cannula 2.0 97.4 Intake and Output 04/21/20 07:00 Intake Total 100 ml Output Total 2325 ml Balance -2225 ml Intake Oral 100 ml Output Urine Total 2325 ml # Voids 4 Physical Exam Abdomen: Soft, No tenderness Heart: Regular rate (SR with PVCs), Normal S1, Normal S2, No murmurs Extremities: No cyanosis, No edema General: No acute distress, Other (drowsy but aroudable) HEENT: Atraumatic, Mucous membr. moist/pink Lungs: Clear to auscultation, Normal air movement, Other Neuro: Sensation intact Psych/Mental Status: Other (drowsy) Skin: Other (back bruising and arm ecchymoses) Assessment Assessment 1. Atypical chest pain, most probably GI etiology: Myocardial infarction has been ruled out. Plan ischemic evaluation and 2D echocardiogram as an outpatient. Continue proton pump inhibitors. 2. Heavy Alcoholism: Monitor for withdrawal 3. Dementia: on aricept 4. CAD: remote stent, unclear details, clinically stable 5. HTN: controlled 6. Hypokalemia/hypomagnesemia/hyponatremia: Replaced. 7. Arrhythmia: None further on telemetry 9. Possible syncope vs seizure with suspected Wernicke's encephalopathy 10. Multiple falls, probably related to his alcohol use 11. COPD with continued tobaccoism Plan Plan of Care Problems Medical Problems: (1) Chest pain Status: Acute Comment Review of Relevant I have reviewed the following items cherelle (where applicable) has been applied. Labs Laboratory Tests Test 04/21/20 04:00 White Blood Count 5.8 x10^3/uL (4.0-11.0) Red Blood Count 3.51 x10^6/uL (4.30-5.70) Hemoglobin 12.2 g/dL (13.0-17.5) Hematocrit 34.6 % (39.0-53.0) Mean Corpuscular Volume 98 fL (79-100) Mean Corpuscular Hemoglobin 35 pg (25-35) Mean Corpuscular Hemoglobin Concent 35 g/dL (31-37) Red Cell Distribution Width 12.9 % (11.5-14.5) Platelet Count 203 x10^3/uL (140-400) Neutrophils (%) (Auto) 62 % (31-73) Lymphocytes (%) (Auto) 26 % (24-48) Monocytes (%) (Auto) 10 % (0-9) Eosinophils (%) (Auto) 1 % (0-3) Basophils (%) (Auto) 1 % (0-3) Neutrophils # (Auto) 3.6 x10^3/uL (1.8-7.7) Lymphocytes # (Auto) 1.5 x10^3/uL (1.0-4.8) Monocytes # (Auto) 0.6 x10^3/uL (0.0-1.1) Eosinophils # (Auto) 0.1 x10^3/uL (0.0-0.7) Basophils # (Auto) 0.0 x10^3/uL (0.0-0.2) Sodium Level 131 mmol/L (136-145) Potassium Level 3.5 mmol/L (3.5-5.1) Chloride Level 96 mmol/L (98-107) Carbon Dioxide Level 25 mmol/L (21-32) Anion Gap 10 (6-14) Blood Urea Nitrogen 6 mg/dL (8-26) Creatinine 0.4 mg/dL (0.7-1.3) Estimated GFR (Cockcroft-Gault) 210.9 Glucose Level 73 mg/dL (70-99) Calcium Level 7.9 mg/dL (8.5-10.1) Phosphorus Level 2.8 mg/dL (2.6-4.7) Magnesium Level 1.7 mg/dL (1.8-2.4) Triglycerides Level 65 mg/dL (0-150) Cholesterol Level 200 mg/dL (0-200) LDL Cholesterol, Calculated 87 mg/dL (0-100) VLDL Cholesterol, Calculated 13 mg/dL (0-40) Non-HDL Cholesterol Calculated 100 mg/dL (0-129) HDL Cholesterol 100 mg/dL (40-60) Cholesterol/HDL Ratio 2.0 Medications Current Medications Aspirin (Ecotrin) 81 mg DAILYWBKFT PO Last administered on 04/21/20at 09:21; Start 04/21/20 at 08:00 Enoxaparin Sodium (Lovenox 40mg Syringe) 40 mg Q24H SQ Last administered on 04/20/20at 18:11; Start 04/20/20 at 16:00 Famotidine (Pepcid Vial) 20 mg 1X ONCE IVP Last administered on 04/20/20at 18:11; Start 04/20/20 at 15:30; Stop 04/20/20 at 15:34; Status DC Folic Acid (Folic Acid) 1 mg DAILY PO Last administered on 04/21/20at 09:21; Start 04/21/20 at 09:00 Labetalol HCl (Normodyne Iv Push) 10 mg PRN Q2HR PRN IVP HYPERTENSION Last administered on 04/21/20at 09:22; Start 04/20/20 at 15:45 Magnesium Sulfate 100 ml @ 25 mls/hr 1X ONCE IV Last administered on 04/20/20at 14:15; Start 04/20/20 at 14:15; Stop 04/20/20 at 18:14; Status DC Pantoprazole Sodium (Protonix) 40 mg 1X ONCE PO ; Start 04/20/20 at 14:15; Stop 04/20/20 at 14:16; Status DC Pantoprazole Sodium (Protonix) 40 mg DAILYAC PO Last administered on 04/21/20at 09:21; Start 04/21/20 at 07:30 Ringer's Solution 1,000 ml @ 100 mls/hr Q10H IV Last administered on 04/20/20at 21:56; Start 04/21/20 at 04:00 Thiamine HCl 300 mg/Dextrose 53 ml @ 102 mls/hr DAILY IV Last administered on 04/21/20at 09:25; Start 04/21/20 at 09:00 Vitals/I & O Vital Sign - Last 24 Hours 04/20/20 04/20/20 04/20/20 04/20/20 14:50 19:13 20:15 22:30 Temp 97.6 97.9 97.8 97.6 97.9 97.8 Pulse 77 80 75 Resp 20 16 16 B/P (MAP) 142/87 (105) 130/85 (100) 154/76 (102) Pulse Ox 97 99 100 O2 Delivery Room Air Nasal Cannula Nasal Cannula Nasal Cannula O2 Flow Rate 2.0 2.0 2.0 1/30/21 1/30/21 1/30/21 1/30/21 02:31 07:00 08:00 09:22 Temp 97.7 97.7 Pulse 69 73 73 Resp 18 20 B/P (MAP) 125/59 (81) 164/83 (110) 164/83 Pulse Ox 100 100 O2 Delivery Nasal Cannula Nasal Cannula Nasal Cannula O2 Flow Rate 2.0 2.0 2.0 04/21/20 11:00 Temp 97.4 97.4 Pulse 72 Resp 20 B/P (MAP) 138/63 (88) Pulse Ox 100 O2 Delivery Nasal Cannula O2 Flow Rate 2.0 Intake and Output 04/20/20 04/20/20 04/21/20 15:00 23:00 07:00 Intake Total 0 ml 100 ml Output Total 450 ml 925 ml 950 ml Balance -450 ml -925 ml -850 ml JOHAN FIELDS MD Apr 21, 2020 12:49
[2020-04-21] MEDS: IV RINGERS,LACTATED 1000ML 1,000 ML IV SCH ×2 (13:28→23:41)
--- NOTE | 2020-04-21 13:28 | PDOC2 ---
NEUROLOGY CONSULT Date of Service DOS: DATE: 04/21/20 TIME: 13:17 Reason for Consult Reason for Consult: Altered mental status Referring Physician Referring Physician: Dr. Garcia PCP: Dr. Brooks, [place] Source Source: Caregiver (), Chart review, Patient History of Present Illness History of Present Illness The patient is a 74-year-old right-handed male with history of alcoholism, he fainted yesterday. He has had withdrawal symptoms in the past. He has never h ad a full seizure, but he does pass out a lot, sometimes with incontinence. He denies any stroke or head injuries. He was having some chest pain as well. He has had memory problems before. says that he has trouble walking and has frequent falls. Past Medical History Cardiovascular: CAD, HTN, [place], Hyperlipidemia Pulmonary: COPD CENTRAL NERVOUS SYSTEM: Dementia Psych: Addictions (anemia) Past Surgical History Past Surgical History: Other (coronary) Family History Family History: Other (dementia) Social History Social History 7 beers/day, 1 pack/day, , retired Current Medications Current Medications Current Medications Aspirin (Aspirin Chewable) 324 mg 1X ONCE PO ; Start 04/20/20 at 01:15; Stop 04/20/20 at 01:25; Status DC Morphine Sulfate (Morphine Sulfate) 4 mg 1X ONCE IV Last administered on 04/20/20at 02:19; Start 04/20/20 at 02:00; Stop 04/20/20 at 02:02; Status DC Potassium Chloride/Water 100 ml @ 100 mls/hr Q1H IV ; Start 04/20/20 at 01:45; Stop 04/20/20 at 03:44; Status UNV Potassium Chloride/Water 100 ml @ 100 mls/hr Q1H IV Last administered on 04/20/20at 06:54; Start 04/20/20 at 02:00; Stop 04/20/20 at 05:59; Status DC Morphine Sulfate (Morphine Sulfate) 2 mg 1X ONCE IV Last administered on 04/20/20at 03:16; Start 04/20/20 at 03:30; Stop 04/20/20 at 03:31; Status DC Ondansetron HCl (Zofran) 4 mg PRN Q8HRS PRN IV NAUSEA/VOMITING 1ST CHOICE; Start 04/20/20 at 03:30; Stop 04/21/20 at 03:29; Status DC Morphine Sulfate (Morphine Sulfate) 4 mg PRN Q2HR PRN IV SEVERE PAIN 7-10 Last administered on 04/20/20at 04:25; Start 04/20/20 at 03:30; Stop 04/21/20 at 03:29; Status DC Lorazepam (Ativan Inj) 2 mg PRN Q15MIN PRN IV SEE COMMENTS; Start 04/20/20 at 06:15; Status UNV Lorazepam (Ativan Inj) 4 mg PRN Q15MIN PRN IV SEE COMMENTS; Start 04/20/20 at 06:15; Status UNV Lorazepam (Ativan Inj) 2 mg PRN Q1HR PRN IV For CIWA 8-14 Last administered on 04/21/20at 10:28; Start 04/20/20 at 06:30 Lorazepam (Ativan Inj) 4 mg PRN Q1HR PRN IV For CIWA 15 or greater; Start 04/20/20 at 06:30 Thiamine HCl 300 mg/Folic Acid 1 mg/Sodium Chloride 1,003.2 ml @ 200 mls/ hr Q5H1M IV Last administered on 04/20/20at 16:01; Start 04/20/20 at 11:00; Stop 04/20/20 at 21:01; Status DC Potassium Chloride/Water 100 ml @ 50 mls/hr Q1HR IV Last administered on at 16:00; Start 04/20/20 at 11:00; Stop 04/20/20 at 16:59; Status DC Sennosides (Senna) 17.2 mg PRN BID PRN PO CONSTIPATION; Start 04/20/20 at 12:00 Docusate Sodium (Colace) 100 mg PRN DAILY PRN PO HARD STOOLS; Start 04/20/20 at 12:00 Ondansetron HCl (Zofran) 4 mg PRN Q6HRS PRN IVP NAUSEA/VOMITING; Start 04/20/20 at 12:00 Aspirin (Ecotrin) 81 mg DAILYWBKFT PO Last administered on 04/21/20at 09:21; Start 04/21/20 at 08:00 Dextrose (Dextrose 50%-Water Syringe) 12.5 gm PRN Q15MIN PRN IV SEE COMMENTS; Start 04/20/20 at 12:00 Acetaminophen (Tylenol) 650 mg PRN Q4HRS PRN PO TEMP OVER 100.4F OR MILD PAIN; Start 04/20/20 at 12:00 Enoxaparin Sodium (Lovenox 40mg Syringe) 40 mg Q24H SQ Last administered on 04/20/20at 18:11; Start 04/20/20 at 16:00 Magnesium Sulfate 100 ml @ 25 mls/hr 1X ONCE IV Last administered on 04/20/20at 14:15; Start 04/20/20 at 14:15; Stop 04/20/20 at 18:14; Status DC Pantoprazole Sodium (Protonix) 40 mg 1X ONCE PO ; Start 04/20/20 at 14:15; Stop 04/20/20 at 14:16; Status DC Pantoprazole Sodium (Protonix) 40 mg DAILYAC PO Last administered on 04/21/20at 09:21; Start 04/21/20 at 07:30 Famotidine (Pepcid Vial) 20 mg 1X ONCE IVP Last administered on 04/20/20at 18:11; Start 04/20/20 at 15:30; Stop 04/20/20 at 15:34; Status DC Labetalol HCl (Normodyne Iv Push) 10 mg PRN Q2HR PRN IVP HYPERTENSION Last administered on 04/21/20at 09:22; Start 04/20/20 at 15:45 Ringer's Solution 1,000 ml @ 100 mls/hr Q10H IV Last administered on 04/20/20at 21:56; Start 04/21/20 at 04:00 Thiamine HCl 300 mg/Dextrose 53 ml @ 102 mls/hr DAILY IV Last administered on 04/21/20at 09:25; Start 04/21/20 at 09:00 Folic Acid (Folic Acid) 1 mg DAILY PO Last administered on 04/21/20at 09:21; Start 04/21/20 at 09:00 Active Scripts Active Reported Wellbutrin Sr (Bupropion Hcl) 100 Mg Tablet.er 1 Tab PO BID Donepezil Hcl 10 Mg Tablet 1 Tab PO DAILY Children's Aspirin (Aspirin) 81 Mg Tab.chew 81 Mg PO DAILY Trazodone Hcl 50 Mg Tablet 1 Tab PO QHS Lisinopril 20 Mg Tablet 1 Tab PO DAILY Lasix (Furosemide) 20 Mg Tablet 0.5 Tab PO DAILY 30 Days Allergies Allergies: Coded Allergies: No Known Drug Allergies (Unverified , 04/20/20) ROS Review of System Negative for fever, chills, weight loss, chest pain, indigestion, hematochezia, melena, and dysuria; dyspnea. Full 14-point review of systems is negative. Physical Exam Physical Examination General: Well-developed, well-nourished, white male, in no acute distress HEENT: Normocephalic andatraumatic. Temporal arteriespulsatile and nontender. Neck: Supple without bruit, no meningismus Musculoskeletal: Stability:see neurologic. Gait exam:see neurologic. Tone:see neurologic.Strength:see neurologic. Neurological: Mental Status:orientation, memory, attention span/concentration, language, fund of knowledge: Does not know date, location, says the president is SET, follows commands, names and repeats. Cranial Nerves:Pupils equal and reactive to light, extraocular movements areintact, visual leonardo are full to confrontation. Facial sensation is normal. There is left ptosis, otherwise no facial asymmetry. Vestibulo-ocular reflex is intact. Palate elevates and tongue protrudes in midline. All other cranial related problems are negative except as mentioned before.Reflexes:1+ and symmetric with flexor plantar responses. Motor:5/5 strength with normal tone and bulk. Coordination:Finger-nose finger and rmpy-ea-vofw testing are normal. Rapid alternating movements and fine finger movements are intact. Gait:Normal, including tandem. Sensory:Stocking loss Vitals VITALS Vital Signs Date Time Temp Pulse Resp B/P (MAP) Pulse Ox O2 Delivery O2 Flow Rate FiO2 04/21/20 11:00 97.4 72 20 138/63 (88) 100 Nasal Cannula 2.0 97.4 Labs Labs Laboratory Tests Test 04/20/20 01:12 04/20/20 01:50 04/20/20 04:22 04/20/20 06:45 White Blood Count 4.5 x10^3/uL (4.0-11.0) Red Blood Count 3.11 x10^6/uL (4.30-5.70) Hemoglobin 10.8 g/dL (13.0-17.5) Hematocrit 30.4 % (39.0-53.0) Mean Corpuscular Volume 98 fL (79-100) Mean Corpuscular Hemoglobin 35 pg (25-35) Mean Corpuscular Hemoglobin Concent 36 g/dL (31-37) Red Cell Distribution Width 12.2 % (11.5-14.5) Platelet Count 167 x10^3/uL (140-400) Neutrophils (%) (Auto) 42 % (31-73) Lymphocytes (%) (Auto) 40 % (24-48) Monocytes (%) (Auto) 15 % (0-9) Eosinophils (%) (Auto) 2 % (0-3) Basophils (%) (Auto) 1 % (0-3) Neutrophils # (Auto) 1.9 x10^3/uL (1.8-7.7) Lymphocytes # (Auto) 1.8 x10^3/uL (1.0-4.8) Monocytes # (Auto) 0.7 x10^3/uL (0.0-1.1) Eosinophils # (Auto) 0.1 x10^3/uL (0.0-0.7) Basophils # (Auto) 0.0 x10^3/uL (0.0-0.2) Prothrombin Time 13.4 SEC (11.7-14.0) Prothromb Time International Ratio 1.1 (0.8-1.1) D-Dimer (Bev) 0.99 ug/mlFEU (0.00-0.50) Sodium Level 123 mmol/L (136-145) 122 mmol/L (136-145) Potassium Level 2.4 mmol/L (3.5-5.1) 3.0 mmol/L (3.5-5.1) Chloride Level 86 mmol/L (98-107) 86 mmol/L (98-107) Carbon Dioxide Level 24 mmol/L (21-32) 22 mmol/L (21-32) Anion Gap 13 (6-14) 14 (6-14) Blood Urea Nitrogen 10 mg/dL (8-26) 8 mg/dL (8-26) Creatinine 0.6 mg/dL (0.7-1.3) 0.6 mg/dL (0.7-1.3) Estimated GFR (Cockcroft-Gault) 132.1 132.1 BUN/Creatinine Ratio 17 (6-20) Glucose Level 95 mg/dL (70-99) 88 mg/dL (70-99) Calcium Level 8.4 mg/dL (8.5-10.1) 8.3 mg/dL (8.5-10.1) Magnesium Level 1.0 mg/dL (1.8-2.4) Total Bilirubin 0.5 mg/dL (0.2-1.0) Aspartate Amino Transf (AST/SGOT) 27 U/L (15-37) Alanine Aminotransferase (ALT/SGPT) 28 U/L (16-63) Alkaline Phosphatase 42 U/L (46-116) Creatine Kinase 84 U/L (39-308) Troponin I Quantitative 0.022 ng/mL (0.000-0.055) < 0.017 ng/mL (0.000-0.055) 0.019 ng/mL (0.000-0.055) KF-Jrz-S-Type Natriuretic Peptide 743 pg/mL (0-124) 638 pg/mL (0-124) Total Protein 4.8 g/dL (6.4-8.2) Albumin 2.6 g/dL (3.4-5.0) Albumin/Globulin Ratio 1.2 (1.0-1.7) Lipase 293 U/L (73-393) Ethyl Alcohol Level 101 mg/dL (0-10) Urine Collection Type Unknown Urine Color Yellow Urine Clarity Clear Urine pH 6.5 (<5.0-8.0) Urine Specific [place] <=1.005 (1.000-1.030) Urine Protein Negative mg/dL (NEG-TRACE) Urine Glucose (UA) Negative mg/dL (NEG) Urine Ketones (Stick) Negative mg/dL (NEG) Urine Blood Negative (NEG) Urine Nitrite Negative (NEG) Urine Bilirubin Negative (NEG) Urine Urobilinogen Dipstick 0.2 mg/dL (0.2 mg/dL) Urine Leukocyte Esterase Negative (NEG) Urine RBC 0 /HPF (0-2) Urine WBC 1-4 /HPF (0-4) Urine Squamous Epithelial Cells Few /LPF Urine Amorphous Sediment Present /HPF Urine Bacteria 0 /HPF (0-FEW) Thyroid Stimulating Hormone (TSH) 1.144 uIU/mL (0.358-3.74) Test 04/21/20 04:00 White Blood Count 5.8 x10^3/uL (4.0-11.0) Red Blood Count 3.51 x10^6/uL (4.30-5.70) Hemoglobin 12.2 g/dL (13.0-17.5) Hematocrit 34.6 % (39.0-53.0) Mean Corpuscular Volume 98 fL (79-100) Mean Corpuscular Hemoglobin 35 pg (25-35) Mean Corpuscular Hemoglobin Concent 35 g/dL (31-37) Red Cell Distribution Width 12.9 % (11.5-14.5) Platelet Count 203 x10^3/uL (140-400) Neutrophils (%) (Auto) 62 % (31-73) Lymphocytes (%) (Auto) 26 % (24-48) Monocytes (%) (Auto) 10 % (0-9) Eosinophils (%) (Auto) 1 % (0-3) Basophils (%) (Auto) 1 % (0-3) Neutrophils # (Auto) 3.6 x10^3/uL (1.8-7.7) Lymphocytes # (Auto) 1.5 x10^3/uL (1.0-4.8) Monocytes # (Auto) 0.6 x10^3/uL (0.0-1.1) Eosinophils # (Auto) 0.1 x10^3/uL (0.0-0.7) Basophils # (Auto) 0.0 x10^3/uL (0.0-0.2) Sodium Level 131 mmol/L (136-145) Potassium Level 3.5 mmol/L (3.5-5.1) Chloride Level 96 mmol/L (98-107) Carbon Dioxide Level 25 mmol/L (21-32) Anion Gap 10 (6-14) Blood Urea Nitrogen 6 mg/dL (8-26) Creatinine 0.4 mg/dL (0.7-1.3) Estimated GFR (Cockcroft-Gault) 210.9 Glucose Level 73 mg/dL (70-99) Calcium Level 7.9 mg/dL (8.5-10.1) Phosphorus Level 2.8 mg/dL (2.6-4.7) Magnesium Level 1.7 mg/dL (1.8-2.4) Triglycerides Level 65 mg/dL (0-150) Cholesterol Level 200 mg/dL (0-200) LDL Cholesterol, Calculated 87 mg/dL (0-100) VLDL Cholesterol, Calculated 13 mg/dL (0-40) Non-HDL Cholesterol Calculated 100 mg/dL (0-129) HDL Cholesterol 100 mg/dL (40-60) Cholesterol/HDL Ratio 2.0 Laboratory Tests Test 04/21/20 04:00 White Blood Count 5.8 x10^3/uL (4.0-11.0) Red Blood Count 3.51 x10^6/uL (4.30-5.70) Hemoglobin 12.2 g/dL (13.0-17.5) Hematocrit 34.6 % (39.0-53.0) Mean Corpuscular Volume 98 fL (79-100) Mean Corpuscular Hemoglobin 35 pg (25-35) Mean Corpuscular Hemoglobin Concent 35 g/dL (31-37) Red Cell Distribution Width 12.9 % (11.5-14.5) Platelet Count 203 x10^3/uL (140-400) Neutrophils (%) (Auto) 62 % (31-73) Lymphocytes (%) (Auto) 26 % (24-48) Monocytes (%) (Auto) 10 % (0-9) Eosinophils (%) (Auto) 1 % (0-3) Basophils (%) (Auto) 1 % (0-3) Neutrophils # (Auto) 3.6 x10^3/uL (1.8-7.7) Lymphocytes # (Auto) 1.5 x10^3/uL (1.0-4.8) Monocytes # (Auto) 0.6 x10^3/uL (0.0-1.1) Eosinophils # (Auto) 0.1 x10^3/uL (0.0-0.7) Basophils # (Auto) 0.0 x10^3/uL (0.0-0.2) Sodium Level 131 mmol/L (136-145) Potassium Level 3.5 mmol/L (3.5-5.1) Chloride Level 96 mmol/L (98-107) Carbon Dioxide Level 25 mmol/L (21-32) Anion Gap 10 (6-14) Blood Urea Nitrogen 6 mg/dL (8-26) Creatinine 0.4 mg/dL (0.7-1.3) Estimated GFR (Cockcroft-Gault) 210.9 Glucose Level 73 mg/dL (70-99) Calcium Level 7.9 mg/dL (8.5-10.1) Phosphorus Level 2.8 mg/dL (2.6-4.7) Magnesium Level 1.7 mg/dL (1.8-2.4) Triglycerides Level 65 mg/dL (0-150) Cholesterol Level 200 mg/dL (0-200) LDL Cholesterol, Calculated 87 mg/dL (0-100) VLDL Cholesterol, Calculated 13 mg/dL (0-40) Non-HDL Cholesterol Calculated 100 mg/dL (0-129) HDL Cholesterol 100 mg/dL (40-60) Cholesterol/HDL Ratio 2.[address] HEAD WITHOUT CONTRAST History: Reason: fall / Spl. Instructions: / History: Comparison: None. Technique: Axial images are obtained of the head from the skull base through the vertex without IV contrast. Findings: No mass-effect, midline shift, extra-axial fluid collection, hemorrhage, or obvious acute infarction is identified. Basilar cisterns are patent. The ventricles and sulci are prominent, consistent with age-related cerebral atrophy. There is periventricular white matter hypoattenuation. This is a nonsp ecific finding but is commonly due to chronic small vessel ischemic disease. Bone windows demonstrate no acute calvarial abnormality. The visualized paranasal sinuses are clear. Mastoid air cells are well aerated. IMPRESSION: 1. No acute intracranial abnormality. 2. Age-related cerebral atrophy and periventricular white matter changes probably due to chronic small vessel ischemic disease. 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 Thank you for letting me help with the patient's care. GLENYS JACOBS MD Apr 21, 2020 13:28
[2020-04-21 15:00] VITALS: BP 164/79
[2020-04-21] MEDS: ENOXAPARIN 40 MG/0.4 ML SYRINGE. SQ SCH (18:13)
[2020-04-21] MEDS: ACETAMINOPHEN 325 MG TABLET. PO PRN (18:13)
[2020-04-21 19:20] VITALS: BP 153/78
[2020-04-21 23:30] VITALS: BP 179/86
[2020-04-22 03:25] VITALS: BP 173/97
[2020-04-22 07:00] VITALS: BP 169/100
[2020-04-22] MEDS: THIAMINE INJ 300 MG in IV DEXTROSE 5% 50 ML IV SCH (09:22)
[2020-04-22] MEDS: FOLIC ACID 1 MG TABLET. PO SCH (09:22)
[2020-04-22] MEDS: ASPIRIN ENTERIC COATED 81 MG TABLET.DR. PO SCH (09:22)
[2020-04-22] MEDS: PANTOPRAZOLE 40 MG TABLET.DR. PO SCH (09:22)
--- NOTE | 2020-04-22 10:40 | PDOC ---
PROGRESS NOTES Date of Service: DATE: 04/22/20 TIME: 10:40 Subjective Subjective Mental status improved and tolerating diet. Denied any chest pain. Objective Objective Vital Signs Date Time Temp Pulse Resp B/P (MAP) Pulse Ox O2 Delivery O2 Flow Rate FiO2 04/22/20 07:00 97.3 82 20 169/100 (123) 98 Room Air 97.3 04/21/20 19:55 2.0 Intake and Output 04/22/20 07:00 Intake Total 370 ml Output Total 200 ml Balance 170 ml Intake Oral 370 ml Output Urine Total 200 ml # Voids 6 Physical Exam Abdomen: Soft, No tenderness Heart: Regular rate (SR with PVCs), Normal S1, Normal S2, No murmurs Extremities: No cyanosis, No edema General: No acute distress, Other (drowsy but aroudable) HEENT: Atraumatic, Mucous membr. moist/pink Lungs: Clear to auscultation, Normal air movement, Other Neuro: Sensation intact Psych/Mental Status: Other (drowsy) Skin: Other (back bruising and arm ecchymoses) Assessment Assessment 1. Atypical chest pain, most probably GI etiology: Myocardial infarction has been ruled out. Plan ischemic evaluation and 2D echocardiogram as an outpatient. Continue proton pump inhibitors. 2. Heavy Alcoholism: Monitor for withdrawal 3. Dementia: on aricept 4. CAD: remote stent, unclear details, clinically stable 5. HTN: controlled 6. Hypokalemia/hypomagnesemia/hyponatremia: Replaced. 7. Arrhythmia: None further on telemetry 9. Possible syncope vs seizure with suspected Wernicke's encephalopathy 10. Multiple falls, probably related to his alcohol use 11. COPD with continued tobaccoism Plan Plan of Care Problems Medical Problems: (1) Chest pain Status: Acute Comment Review of Relevant I have reviewed the following items cherelle (where applicable) has been applied. Medications Current Medications Aspirin (Aspirin Chewable) 81 mg DAILY PO ; Start 04/23/20 at 09:00; Status UNV Bupropion HCl (Wellbutrin Sr) 100 mg BID PO ; Start 04/22/20 at 11:00 Lisinopril (Prinivil) 20 mg DAILY PO ; Start 04/22/20 at 11:00 Vitals/I & O Vital Sign - Last 24 Hours 04/21/20 04/21/20 04/21/20 04/21/20 11:00 15:00 19:20 19:55 Temp 97.4 97.1 97.4 97.4 97.1 97.4 Pulse 72 73 73 Resp 20 18 14 B/P (MAP) 138/63 (88) 164/79 (107) 153/78 (103) Pulse Ox 100 100 100 O2 Delivery Nasal Cannula Nasal Cannula Nasal Cannula Nasal Cannula O2 Flow Rate 2.0 2.0 2.0 2.0 04/21/20 04/22/20 04/22/20 23:30 03:25 07:00 Temp 97.6 97.3 97.3 97.6 97.3 97.3 Pulse 77 83 82 Resp 17 17 20 B/P (MAP) 179/86 (117) 173/97 (122) 169/100 (123) Pulse Ox 98 99 98 O2 Delivery Nasal Cannula Room Air Room Air Intake and Output 04/21/20 04/21/20 04/22/20 15:00 23:00 07:00 Intake Total 250 ml 120 ml Output Total 200 ml Balance 250 ml -80 ml JOHAN FIELDS MD Apr 22, 2020 10:40
[2020-04-22 11:00] VITALS: BP 102/58
[2020-04-22 11:55] LABS: CALCIUM 8.5 mg/dL (8.5-10.1); CREATININE 0.5 mg/dL (0.7-1.3); MAGNESIUM 1.3 mg/dL (1.8-2.4)
[2020-04-22 11:58] LABS: POTASSIUM 2.8 mmol/L (3.5-5.1)
[2020-04-22] MEDS: IV RINGERS,LACTATED 1000ML 1,000 ML IV SCH (12:20)
[2020-04-22] MEDS: buPROPion SR 100 MG TABLET.SA. PO SCH ×2 (12:20→20:38)
[2020-04-22] MEDS: LISINOPRIL 20 MG TABLET PO SCH (12:24)
[2020-04-22] MEDS: POTASSIUM CHLORIDE 10MEQ 100 ML IV SCH ×6 (12:45→19:15)
--- NOTE | 2020-04-22 13:20 | PDOC ---
[facility] PROGRESS NOTE Date of Service DOS: DATE: 04/22/20 TIME: 13:17 Chief Complaint Chief Complaint Acute toxic and metabolic encephalopathy Acute delirium or confusional state due to infectious versus toxic versus metabolic disturbance Acute chest pain Acute electrolyte derangementhyponatremia, hypokalemia EtOH abuse Near syncope No obvious centrally acting medications currently. No obvious signs of infection on physical exam. No fevers or nuchal rigidity. CT head is negative for acute etiology. No history or signs of trauma Pending B12, folate levels Pending urine toxic drug screen Consider dementia prevention protocol Provide adequate lighting (open curtains during the day, turn the lights off at night) Provide frequent personal contact with family, friends, and staff or TV Encourage early and frequent mobilization Rehab screening ordered IV Haldol as needed for agitation, consider sitter as needed if non-redirectable agitation Avoid physical restraints, catheters or tubes, and benzodiazepines Nutrition consult if there is malnutrition or concern for vitamin deficiencies Continue IV fluids Cardiology consult for chest pain Lovenox for DVT prophylaxis Protonix GI prophylaxis ADA diet Full code Discussed with RN and SW Dispo inpatient management as above History of Present Illness History of Present Illness 04/22/2020 No acute events overnight. Patient with mental status improvement and more awake. Able to tolerate diet without any complications. Potassium of 2.8 and magnesium of 1.7. IV and PO replacement pending. Patient's chart, labs, images were reviewed and discussed with RN 04/21/2020 No acute events overnight. Patient seen and examined working with physical therapy. Patient able to to transfer from bed to recliner. Patient's chart, labs, images were reviewed and discussed with RN 74 year old male with a known past medical history including alcoholism and hypertension now presenting emergency department after reported syncopal episode. According to EMS they were called and the patient has been complaining of chest pain and then had a near syncopal event while at home. States that the family found him on the ground where he became slightly unconscious and then stated that he had chest compressions and give the patient a sublingual nitroglycerin. Upon arrival EMS stated that the patient was arousable and her x1. Uncertain the patient had a fall. Patient is complaining of pain everywhere stating that "everything hurts and I feel terrible everywhere." Patient does admit to chest pain but cannot remember if he fell either. Patient appears to be a poor historian at this time. Vitals/I&O Vitals/I&O: Vital Signs Date Time Temp Pulse Resp B/P (MAP) Pulse Ox O2 Delivery O2 Flow Rate FiO2 04/22/20 12:24 78 102/58 04/22/20 11:00 96.6 20 97 Room Air 96.6 04/21/20 19:55 2.0 I & O 04/21/20 04/21/20 04/22/20 15:00 23:00 07:00 Intake Total 250 ml 120 ml Output Total 200 ml Balance 250 ml -80 ml Physical Exam General: No acute distress, Other (drowsy but aroudable) Heart: Regular rate (SR with PVCs), Normal S1, Normal S2, No murmurs Abdomen: Soft, No tenderness Extremities: No cyanosis, No edema Skin: Other (back bruising and arm ecchymoses) Labs Labs: Laboratory Tests Test 04/22/20 11:14 Sodium Level 131 mmol/L (136-145) Potassium Level 2.8 mmol/L (3.5-5.1) Chloride Level 94 mmol/L (98-107) Carbon Dioxide Level 30 mmol/L (21-32) Anion Gap 7 (6-14) Blood Urea Nitrogen 6 mg/dL (8-26) Creatinine 0.5 mg/dL (0.7-1.3) Estimated GFR (Cockcroft-Gault) 163.0 Glucose Level 110 mg/dL (70-99) Calcium Level 8.5 mg/dL (8.5-10.1) Magnesium Level 1.3 mg/dL (1.8-2.4) Assessment and Plan Assessmemt and Plan Problems Medical Problems: (1) Chest pain Status: Acute Comment Review of Relevant I have reviewed the following items cherelle (where applicable) has been applied. Medications: Current Medications Medications (Trade) Dose Ordered Sig/Terry Route PRN Reason Start Time Stop Time Status Last Admin Dose Admin Bupropion HCl (Wellbutrin Sr) 100 mg BID PO 04/22/20 11:00 04/22/20 12:20 Lisinopril (Prinivil) 20 mg DAILY PO 04/22/20 11:00 04/22/20 12:24 Potassium Chloride/Water 100 ml @ 100 mls/hr Q1H IV 04/22/20 13:00 04/22/20 18:59 04/22/20 12:45 Justifications for Admission Other Justification ACUTE ENCEPHALOPATHY LOWELL DOCKERY MD Apr 22, 2020 13:20
[2020-04-22] MEDS ORDERED: MAGNESIUM SULFATE 2GM 50 ML IV ONE (14:00)
[2020-04-22 15:00] VITALS: BP 153/81
[2020-04-22] MEDS: ENOXAPARIN 40 MG/0.4 ML SYRINGE. SQ SCH (16:14)
[2020-04-22] MEDS: POTASSIUM CHLORIDE 20 MEQ TABLET.ER. PO SCH (17:53)
[2020-04-22 19:45] VITALS: BP 157/96
[2020-04-22 23:05] VITALS: BP 158/92
[2020-04-23 03:40] VITALS: BP 183/86
[2020-04-23] MEDS: LABETALOL 20 MG/4 ML DISP.SYRIN. IVP PRN ×2 (04:02→21:50)
[2020-04-23 07:00] VITALS: BP 156/107
[2020-04-23] MEDS: POTASSIUM CHLORIDE 20 MEQ TABLET.ER. PO SCH ×2 (08:21→16:39)
[2020-04-23] MEDS: IV RINGERS,LACTATED 1000ML 1,000 ML IV SCH ×2 (08:22→20:03)
[2020-04-23] MEDS: LISINOPRIL 20 MG TABLET PO SCH (08:22)
[2020-04-23] MEDS: FOLIC ACID 1 MG TABLET. PO SCH (08:22)
[2020-04-23] MEDS: PANTOPRAZOLE 40 MG TABLET.DR. PO SCH (08:22)
[2020-04-23] MEDS: ASPIRIN ENTERIC COATED 81 MG TABLET.DR. PO SCH (08:22)
[2020-04-23] MEDS ORDERED: ASPIRIN CHEWABLE 81 MG TABLET. PO SCH (09:00)
[2020-04-23] MEDS: THIAMINE INJ 300 MG in IV DEXTROSE 5% 50 ML IV SCH (09:00)
[2020-04-23] MEDS: buPROPion SR 100 MG TABLET.SA. PO SCH ×2 (09:00→20:03)
--- NOTE | 2020-04-23 09:29 | PDOC ---
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 Additional laboratory studies negative, vitamin B12 level cannot Neuropathy, most likely also alcohol-related Syncope related to alcohol, does not sound like he is having convulsive seizures Alcoholism Gait disorder, frequent falls Coronary artery disease with atypical chest pain, hypertension, hypokalemia, hypomagnesemia, hyponatremia, COPD Plan Alcohol withdrawal protocol including thiamine Rehabilitation modalities halfway Subjective No complaint Objective Vital Signs Date Time Temp Pulse Resp B/P (MAP) Pulse Ox O2 Delivery O2 Flow Rate FiO2 04/23/20 08:22 86 183/86 04/23/20 07:00 97.1 20 98 Room Air 97.1 04/22/20 20:43 2.0 Intake and Output 04/23/20 07:00 Intake Total 673 ml Balance 673 ml Intake Oral 673 ml # Voids 4 PHYSICAL EXAM Alert. Oriented only to person. PERRL. EOMI. CN: no focal findings. Muscle tone: normal. Muscle strength: 5/5 DTR: 1+ Plantar reflex: Flexor Gait: not examined in bed. Sensory exam: Stocking loss. No cerebellar signs elicited. Review of Relevant I have reviewed the following items cherelle (where applicable) has been applied. Labs Laboratory Tests Test 04/22/20 11:14 Sodium Level 131 mmol/L (136-145) Potassium Level 2.8 mmol/L (3.5-5.1) Chloride Level 94 mmol/L (98-107) Carbon Dioxide Level 30 mmol/L (21-32) Anion Gap 7 (6-14) Blood Urea Nitrogen 6 mg/dL (8-26) Creatinine 0.5 mg/dL (0.7-1.3) Estimated GFR (Cockcroft-Gault) 163.0 Glucose Level 110 mg/dL (70-99) Calcium Level 8.5 mg/dL (8.5-10.1) Magnesium Level 1.3 mg/dL (1.8-2.4) Laboratory Tests Test 04/22/20 11:14 Sodium Level 131 mmol/L (136-145) Potassium Level 2.8 mmol/L (3.5-5.1) Chloride Level 94 mmol/L (98-107) Carbon Dioxide Level 30 mmol/L (21-32) Anion Gap 7 (6-14) Blood Urea Nitrogen 6 mg/dL (8-26) Creatinine 0.5 mg/dL (0.7-1.3) Estimated GFR (Cockcroft-Gault) 163.0 Glucose Level 110 mg/dL (70-99) Calcium Level 8.5 mg/dL (8.5-10.1) Magnesium Level 1.3 mg/dL (1.8-2.4) Medications Current Medications Aspirin (Aspirin Chewable) 324 mg 1X ONCE PO ; Start 04/20/20 at 01:15; Stop 04/20/20 at 01:25; Status DC Morphine Sulfate (Morphine Sulfate) 4 mg 1X ONCE IV Last administered on 04/20/20at 02:19; Start 04/20/20 at 02:00; Stop 04/20/20 at 02:02; Status DC Potassium Chloride/Water 100 ml @ 100 mls/hr Q1H IV ; Start 04/20/20 at 01:45; Stop 04/20/20 at 03:44; Status UNV Potassium Chloride/Water 100 ml @ 100 mls/hr Q1H IV Last administered on 04/20/20at 06:54; Start 04/20/20 at 02:00; Stop 04/20/20 at 05:59; Status DC Morphine Sulfate (Morphine Sulfate) 2 mg 1X ONCE IV Last administered on 04/20/20at 03:16; Start 04/20/20 at 03:30; Stop 04/20/20 at 03:31; Status DC Ondansetron HCl (Zofran) 4 mg PRN Q8HRS PRN IV NAUSEA/VOMITING 1ST CHOICE; Start 04/20/20 at 03:30; Stop 04/21/20 at 03:29; Status DC Morphine Sulfate (Morphine Sulfate) 4 mg PRN Q2HR PRN IV SEVERE PAIN 7-10 Last administered on 04/20/20at 04:25; Start 04/20/20 at 03:30; Stop 04/21/20 at 03:29; Status DC Lorazepam (Ativan Inj) 2 mg PRN Q15MIN PRN IV SEE COMMENTS; Start 04/20/20 at 06:15; Status UNV Lorazepam (Ativan Inj) 4 mg PRN Q15MIN PRN IV SEE COMMENTS; Start 04/20/20 at 06:15; Status UNV Lorazepam (Ativan Inj) 2 mg PRN Q1HR PRN IV For CIWA 8-14 Last administered on 04/23/20at 05:12; Start 04/20/20 at 06:30 Lorazepam (Ativan Inj) 4 mg PRN Q1HR PRN IV For CIWA 15 or greater; Start 04/20/20 at 06:30 Thiamine HCl 300 mg/Folic Acid 1 mg/Sodium Chloride 1,003.2 ml @ 200 mls/ hr Q5H1M IV Last administered on 04/20/20at 16:01; Start 04/20/20 at 11:00; Stop 04/20/20 at 21:01; Status DC Potassium Chloride/Water 100 ml @ 50 mls/hr Q1HR IV Last administered on 03/24 12/11at 16:00; Start 04/20/20 at 11:00; Stop 04/20/20 at 16:59; Status DC Sennosides (Senna) 17.2 mg PRN BID PRN PO CONSTIPATION; Start 04/20/20 at 12:00 Docusate Sodium (Colace) 100 mg PRN DAILY PRN PO HARD STOOLS; Start 04/20/20 at 12:00 Ondansetron HCl (Zofran) 4 mg PRN Q6HRS PRN IVP NAUSEA/VOMITING; Start 04/20/20 at 12:00 Aspirin (Ecotrin) 81 mg DAILYWBKFT PO Last administered on 04/23/20at 08:22; Start 04/21/20 at 08:00 Dextrose (Dextrose 50%-Water Syringe) 12.5 gm PRN Q15MIN PRN IV SEE COMMENTS; Start 04/20/20 at 12:00 Acetaminophen (Tylenol) 650 mg PRN Q4HRS PRN PO TEMP OVER 100.4F OR MILD PAIN Last administered on 04/21/20at 18:13; Start 04/20/20 at 12:00 Enoxaparin Sodium (Lovenox 40mg Syringe) 40 mg Q24H SQ Last administered on 04/22/20at 16:14; Start 04/20/20 at 16:00 Magnesium Sulfate 100 ml @ 25 mls/hr 1X ONCE IV Last administered on 04/20/20at 14:15; Start 04/20/20 at 14:15; Stop 04/20/20 at 18:14; Status DC Pantoprazole Sodium (Protonix) 40 mg 1X ONCE PO ; Start 04/20/20 at 14:15; Stop 04/20/20 at 14:16; Status DC Pantoprazole Sodium (Protonix) 40 mg DAILYAC PO Last administered on 04/23/20at 08:22; Start 04/21/20 at 07:30 Famotidine (Pepcid Vial) 20 mg 1X ONCE IVP Last administered on 04/20/20at 18:11; Start 04/20/20 at 15:30; Stop 04/20/20 at 15:34; Status DC Labetalol HCl (Normodyne Iv Push) 10 mg PRN Q2HR PRN IVP HYPERTENSION Last administered on 04/23/20at 04:02; Start 04/20/20 at 15:45 Ringer's Solution 1,000 ml @ 100 mls/hr Q10H IV Last administered on 04/23/20at 08:22; Start 04/21/20 at 04:00 Thiamine HCl 300 mg/Dextrose 53 ml @ 102 mls/hr DAILY IV Last administered on 04/22/20at 09:22; Start 04/21/20 at 09:00 Folic Acid (Folic Acid) 1 mg DAILY PO Last administered on 04/23/20at 08:22; Start 04/21/20 at 09:00 Aspirin (Aspirin Chewable) 81 mg DAILY PO ; Start 04/23/20 at 09:00; Status UNV Bupropion HCl (Wellbutrin Sr) 100 mg BID PO Last administered on 04/22/20at 20:38; Start 04/22/20 at 11:00 Lisinopril (Prinivil) 20 mg DAILY PO Last administered on 04/23/20at 08:22; Start 04/22/20 at 11:00 Potassium Chloride (Klor-Con) 40 meq BIDWMEALS PO Last administered on 04/23/20 08:21; Start 04/22/20 at 17:00 Potassium Chloride/Water 100 ml @ 100 mls/hr Q1H IV Last administered on 04/22/20at 19:15; Start 04/22/20 at 13:00; Stop 04/22/20 at 18:59; Status DC Magnesium Sulfate 50 ml @ 25 mls/hr 1X ONCE IV Last administered on 04/22/20at 13:49; Start 04/22/20 at 14:00; Stop 04/22/20 at 15:59; Status DC Active Scripts Active Reported Wellbutrin Sr (Bupropion Hcl) 100 Mg Tablet.er 1 Tab PO BID Donepezil Hcl 10 Mg Tablet 1 Tab PO DAILY Children's Aspirin (Aspirin) 81 Mg Tab.chew 81 Mg PO DAILY Trazodone Hcl 50 Mg Tablet 1 Tab PO QHS Lisinopril 20 Mg Tablet 1 Tab PO DAILY Lasix (Furosemide) 20 Mg Tablet 0.5 Tab PO DAILY 30 Days Vitals/I & O Vital Sign - Last 24 Hours 04/22/20 04/22/20 04/22/20 04/22/20 11:00 12:24 15:00 19:45 Temp 96.6 97.1 97.7 96.6 97.1 97.7 Pulse 78 78 78 87 Resp 20 20 20 B/P (MAP) 102/58 (73) 102/58 153/81 (105) 157/96 (116) Pulse Ox 97 99 96 O2 Delivery Room Air Room Air Room Air 04/22/20 04/22/20 04/23/20 04/23/20 20:43 23:05 03:40 04:02 Temp 97.8 97.9 97.8 97.9 Pulse 76 91 86 Resp 18 20 B/P (MAP) 158/92 (114) 183/86 (118) 183/86 Pulse Ox 96 97 O2 Delivery Nasal Cannula Room Air Room Air O2 Flow Rate 2.0 04/23/20 04/23/20 07:00 08:22 Temp 97.1 97.1 Pulse 72 86 Resp 20 B/P (MAP) 156/107 (123) 183/86 Pulse Ox 98 O2 Delivery Room Air Intake and Output 04/22/20 04/22/20 04/23/20 15:00 23:00 07:00 Intake Total 200 ml 473 ml Balance 200 ml 473 ml Justicifation of Admission Dx: Justifications for Admission: Justification of Admission Dx: N/A GLENYS JACOBS MD Apr 23, 2020 09:29
[2020-04-23 11:00] VITALS: BP 120/76
--- NOTE | 2020-04-23 11:29 | PDOC ---
RUBIN TOBAR OCCUPATIONAL HEALTH NURSE 04/23/20 1129: CARDIO Progress Notes Date and Time Date of Service 04/23/20 Time of Evaluation 1120 Subjective Subjective: Other (sleeping in chair ) Vitals Vitals Vital Signs Date Time Temp Pulse Resp B/P (MAP) Pulse Ox O2 Delivery O2 Flow Rate FiO2 04/23/20 08:22 86 183/86 04/23/20 08:00 Nasal Cannula 04/23/20 07:00 97.1 20 98 97.1 04/22/20 20:43 2.0 Weight Weight [ ] Input and Output Intake and Output Intake and Output 04/23/20 07:00 Intake Total 673 ml Balance 673 ml Intake Oral 673 ml # Voids 4 Physical Exam HEENT: Neck Supple W Full Motion Chest: Symmetric LUNGS: Other (diminished bases) Heart: RRR Abdomen: Other (soft ) Extremities: No Edema Neurology: other (sleeping ) Assessment Assessment 1. Atypical chest pain, most probably GI etiology: AMI ruled out. Echo with LVEF 50%. The RV is mildly dilated 2. Heavy alcoholism: withdrawal as per IM 3. Dementia: on Aricept 4. CAD: remote stent, unclear details, clinically stable 5. HTN: controlled 6. Hypokalemia/hypomagnesemia/hyponatremia: Replaced. 7. Arrhythmia: None further on telemetry 9. Possible syncope vs seizure with suspected Wernicke's encephalopathy 10. Multiple falls, probably related to his alcohol use 11. COPD with continued tobaccoism Recommendations Recheck BMP Mg Replace electrolytes as warranted Secondary prevention; continue ASA, statin therapy Add BB. Monitor BP trend and titrate therapy as warranted Outpatient ischemic evaluation as arranged Follow up in our office with Dr. Toledo as scheduled Justicifation of Admission Dx: Justifications for Admission: Justification of Admission Dx: N/A JOHAN TOLEDO MD 04/23/20 1425: CARDIO Progress Notes Assessment Assessment Patient seen and examined. Agree with WO[employer] HE[employer] RUBBER's assessment and plan. Chest pain with atypical features, most probably GI etiology and currently resolved. CAD status clinically stable. Plan for 2D echo and stress test as an outpatient. Syncope and falls probably related to his alcohol abuse Neurology following for dementia. RUBIN TOBAR APRN Apr 23, 2020 11:29 JOHAN TOLEDO MD Apr 23, 2020 14:25
--- NOTE | 2020-04-23 11:52 | NUR ---
SS following up with discharge planning. SS reviewed pt chart and discussed with pt RN. Pt is currently on room air. PAT team met with pt over the weekend. Gisele from PAT team reported today that she met with pt and pt's family over the weekend. Pt's daughter from [place] visiting for a month. 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 SS was notified that pt lives at home with spouse and two sons. Per RN, pt is not oriented to make own decisions. PT/OT recommended long term unit. SS contacted pt's spouse and daughter via phoned and discussed discharge planning. Pt's spouse and daughter wanting pt to discharge to long term unit at either [facility], ; fax [phone], and [facility] in [place], ; fax [phone]. COVID19 test request for placement and is currently pending. SS phoned and faxed referrals to [facility]. SS will continue to follow for discharge planning.
--- NOTE | 2020-04-23 12:57 | PDOC ---
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, also may have Alzheimer's per neurology Neuropathy, most likely also alcohol-related Syncope related to alcohol, does not sound like he is having convulsive seizures Alcoholism Gait disorder, frequent falls Coronary artery disease with atypical chest pain, hypertension, hypokalemia, hypomagnesemia, hyponatremia, COPD Plan: Consider dementia prevention protocol Provide adequate lighting (open curtains during the day, turn the lights off at night) Provide frequent personal contact with family, friends, and staff or TV Encourage early and frequent mobilization Rehab screening ordered IV Haldol as needed for agitation, consider sitter as needed if non-redirectable agitation Avoid physical restraints, catheters or tubes, and benzodiazepines Nutrition consult if there is malnutrition or concern for vitamin deficiencies Continue IV fluids Cardiology consult for chest pain Lovenox for DVT prophylaxis Protonix GI prophylaxis ADA diet Full code Discussed with RN and SW Dispo inpatient management as above History of Present Illness History of Present Illness Mr Shen is a 74 year old male with a known past medical history including alcoholism and hypertension now presenting emergency department after reported syncopal episode. According to EMS they were called and the patient has been complaining of chest pain and then had a near syncopal event while at home. States that the family found him on the ground where he became slightly unconscious and then stated that he had chest compressions and give the patient a sublingual nitroglycerin. Upon arrival EMS stated that the patient was arousable and oriented x1. Uncertain the patient had a fall. Patient is complaining of pain everywhere stating that "everything hurts and I feel terrible everywhere." Patient does admit to chest pain but cannot remember if he fell either. Patient appears to be a poor historian at that time. ETOH was 101 on admit. 04/21: No acute events overnight. Patient seen and examined working with physical therapy. Patient able to to transfer from bed to recliner. Patient's chart, labs, images were reviewed and discussed with RN 04/22: No acute events overnight. Patient with mental status improvement and more awake. Able to tolerate diet without any complications. Potassium of 2.8 and magnesium of 1.7. IV and PO replacement pending. Very drowsy today, confused. Afebrile. No telemetry events. No pain complaints. D/w nursing and social work as well as therapy patient needs skilled services. Vitals/I&O Vitals/I&O: Vital Signs Date Time Temp Pulse Resp B/P (MAP) Pulse Ox O2 Delivery O2 Flow Rate FiO2 04/23/20 11:00 96.5 75 20 120/76 (91) 97 Room Air 96.5 04/22/20 20:43 2.0 I & O 04/22/20 04/22/20 04/23/20 15:00 23:00 07:00 Intake Total 200 ml 473 ml Balance 200 ml 473 ml Physical Exam General: No acute distress, Other (drowsy but aroudable) Heart: Regular rate (SR with PVCs), Normal S1, Normal S2, No murmurs Abdomen: Soft, No tenderness Extremities: No cyanosis, No edema Skin: Other (back bruising and arm ecchymoses) Labs Labs: Laboratory Tests Test 04/23/20 11:15 SARS-CoV-2 Antigen (Rapid) Negative (NEGATIVE) Assessment and Plan Assessmemt and Plan Problems Medical Problems: (1) Chest pain Status: Acute Comment Review of Relevant I have reviewed the following items cherelle (where applicable) has been applied. Medications: Current Medications Medications (Trade) Dose Ordered Sig/Terry Route PRN Reason Start Time Stop Time Status Last Admin Dose Admin Potassium Chloride (Klor-Con) 40 meq BIDWMEALS PO 04/22/20 17:00 04/23/20 08:21 Potassium Chloride/Water 100 ml @ 100 mls/hr Q1H IV 04/22/20 13:00 04/22/20 18:59 DC 04/22/20 19:15 Magnesium Sulfate 50 ml @ 25 mls/hr 1X ONCE IV 04/22/20 14:00 04/22/20 15:59 DC 04/22/20 13:49 Justifications for Admission Other Justification ACUTE ENCEPHALOPATHY JESSICA HUTCHISON MD Apr 23, 2020 12:57
--- NOTE | 2020-04-23 14:50 | NUR ---
SS following up with discharge planning. Pt accepted at [facility] in [place]. SS will continue to follow for discharge planning.
[2020-04-23 15:00] VITALS: BP 180/99
--- NOTE | 2020-04-23 15:18 | CARD ---
MR#: [id number] Date of Study: 04/20/2020 Ordering Physician: VIC THOMPSON, Referring Physician: VIC THOMPSON, Tech: Oriana Riley, [facility] APPROVED REPORT EXAM: Two-dimensional and M-mode echocardiogram with Doppler and color Doppler. Other Information Quality : PoorHR: 70bpm Technically limited study due to body habitus. INDICATION COPD 2D DIMENSIONS Left Atrium(2D)3.7 (1.6-4.0cm)IVSd1.2 (0.7-1.1cm) Aortic Root(2D)3.1 (2.0-3.7cm)LVDd4.9 (3.9-5.9cm) LVOT Diameter2.0 (1.8-2.4cm)PWd1.2 (0.7-1.1cm) LVDs3.9 (2.5-4.0cm)FS (%) 20.1 % SV45.8 mlLVEF(%)41.0 (>50%) Aortic Valve AoV Peak Ector.125.0cm/sAoV VTI30.0cm AO Peak GR.6.3mmHgLVOT VTI 16.14cm AO Mean GR.4mmHg Mitral Valve MV E Luyjquwq00.1cm/sMV DECEL [id number] MV A Dinbaeac96.0cm/sE/A Ratio0.5 TDI Lateral E' P. V5.60cm/sMedial E' P. V5.47cm/s E/Lateral E'7.0E/Medial E'7.1 Tricuspid Valve TR P. Mkoqnjfz383hv/sRAP [id number] TR Peak Gr.06xaFaGORD77msVf Pulmonary Vein S1 Trzbcuai00.1cm/sS2 Mperiqut81.66cm/s D2 Bfhyjrgp32.7cm/sPVa [id number] LEFT VENTRICLE The left ventricle is normal size. There is mild concentric left ventricular hypertrophy. The left ve ntricular systolic function is normal and the ejection fraction is within normal range. EF 50% Septal motion consistent with conduction abnormality. Otherwise, grossly normal Transmitral Doppler flow pa ttern is Grade I-abnormal relaxation pattern. RIGHT VENTRICLE The right ventricle is mildly dilated. There is normal right ventricular wall thickness. The right ve ntricular systolic function is normal. ATRIA The left atrium size is normal. The right atrium is not well visualized. The interatrial septum is in tact with no evidence for an atrial septal defect or patent foramen ovale as noted on 2-D or Doppler imaging. AORTIC VALVE The aortic valve is thickened but opens well. Doppler and Color Flow revealed trace aortic regurgitat ion. There is no significant aortic valvular stenosis. Calculated aortic valve area is 1.90 cm2 with maximum pressure gradient of 9 mmHg and mean pressure gradient of 4 mmHg. MITRAL VALVE The mitral valve is normal in structure and function. There is no evidence of mitral valve prolapse. There is no mitral valve stenosis. TRICUSPID VALVE The tricuspid valve is normal in structure and function. Doppler and Color Flow revealed trace tricus pid regurgitation with an estimated PAP of 32 mmHg. There is no tricuspid valve stenosis. PULMONIC VALVE The pulmonic valve is not well visualized. Doppler and Color Flow revealed no pulmonic valvular regur gitation. There is no pulmonic valvular stenosis. GREAT VESSELS The aortic root is normal in size. The IVC was not visualized. PERICARDIAL EFFUSION There is no evidence of significant pericardial effusion. Critical Notification Critical Value: No <Conclusion> The left ventricular systolic function is normal and the ejection fraction is within normal range. EF 50% Septal motion consistent with conduction abnormality. Otherwise, grossly normal The right ventricle is mildly dilated. Technically very difficult study Signed by : Dillan Melchor, Electronically Approved : 04/23/2020 15:18:04
[2020-04-23] MEDS: ENOXAPARIN 40 MG/0.4 ML SYRINGE. SQ SCH (16:38)
[2020-04-23 16:50] LABS: CALCIUM 8.4 mg/dL (8.5-10.1); CREATININE 0.5 mg/dL (0.7-1.3); MAGNESIUM 1.2 mg/dL (1.8-2.4); POTASSIUM 4.1 mmol/L (3.5-5.1)
[2020-04-23 19:55] VITALS: BP 174/62
[2020-04-23] MEDS: ATORVASTATIN CALCIUM 40 MG TABLET. PO SCH (20:03)
[2020-04-23] MEDS: METOPROLOL TART IMMED RELEASE 25 MG TABLET. PO SCH (20:04)
[2020-04-23 22:52] VITALS: BP 175/90
[2020-04-24 03:10] VITALS: BP 179/96
[2020-04-24 07:00] VITALS: BP 153/84
[2020-04-24] MEDS: THIAMINE INJ 300 MG in IV DEXTROSE 5% 50 ML IV SCH (08:09)
[2020-04-24] MEDS: FOLIC ACID 1 MG TABLET. PO SCH (08:10)
[2020-04-24] MEDS: METOPROLOL TART IMMED RELEASE 25 MG TABLET. PO SCH ×2 (08:10→20:29)
[2020-04-24] MEDS: PANTOPRAZOLE 40 MG TABLET.DR. PO SCH (08:10)
[2020-04-24] MEDS: LISINOPRIL 20 MG TABLET PO SCH (08:10)
[2020-04-24] MEDS: ASPIRIN ENTERIC COATED 81 MG TABLET.DR. PO SCH (08:10)
[2020-04-24] MEDS: buPROPion SR 100 MG TABLET.SA. PO SCH ×2 (08:10→20:29)
[2020-04-24] MEDS: POTASSIUM CHLORIDE 20 MEQ TABLET.ER. PO SCH ×2 (08:11→16:50)
[2020-04-24 10:02] LABS: CALCIUM 8.7 mg/dL (8.5-10.1); CREATININE 0.5 mg/dL (0.7-1.3); MAGNESIUM 1.1 mg/dL (1.8-2.4); POTASSIUM 3.3 mmol/L (3.5-5.1)
--- NOTE | 2020-04-24 10:26 | PDOC ---
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, also may have Alzheimer's per neurology Neuropathy, most likely also alcohol-related Syncope related to alcohol, does not sound like he is having convulsive seizures Alcoholism Gait disorder, frequent falls Coronary artery disease with atypical chest pain, hypertension, hypokalemia, hypomagnesemia, hyponatremia, COPD Plan: Consider dementia prevention protocol Provide adequate lighting (open curtains during the day, turn the lights off at night) Provide frequent personal contact with family, friends, and staff or TV Encourage early and frequent mobilization Rehab screening ordered IV Haldol as needed for agitation, consider sitter as needed if non-redirectable agitation Avoid physical restraints, catheters or tubes, and benzodiazepines Nutrition consult if there is malnutrition or concern for vitamin deficiencies Continue IV fluids Cardiology consult for chest pain Lovenox for DVT prophylaxis Protonix GI prophylaxis ADA diet Full code Discussed with RN and SW Dispo inpatient management as above History of Present Illness History of Present Illness Mr Shen is a 74 year old male with a known past medical history including alcoholism and hypertension now presenting emergency department after reported syncopal episode. According to EMS they were called and the patient has been complaining of chest pain and then had a near syncopal event while at home. States that the family found him on the ground where he became slightly unconscious and then stated that he had chest compressions and give the patient a sublingual nitroglycerin. Upon arrival EMS stated that the patient was arousable and oriented x1. Uncertain the patient had a fall. Patient is complaining of pain everywhere stating that "everything hurts and I feel terrible everywhere." Patient does admit to chest pain but cannot remember if he fell either. Patient appears to be a poor historian at that time. ETOH was 101 on admit. 04/21: No acute events overnight. Patient seen and examined working with physical therapy. Patient able to to transfer from bed to recliner. Patient's chart, labs, images were reviewed and discussed with RN 04/22: No acute events overnight. Patient with mental status improvement and more awake. Able to tolerate diet without any complications. Potassium of 2.8 and magnesium of 1.7. IV and PO replacement pending. 04/23: Very drowsy today, confused. Afebrile. No telemetry events. No pain complaints. D/w nursing and social work as well as therapy patient needs skilled services. More alert today. Mag 1.1, K 3.3. Still very weak. No SOB or CP. Amenable to s killed services given his weakness. Vitals/I&O Vitals/I&O: Vital Signs Date Time Temp Pulse Resp B/P (MAP) Pulse Ox O2 Delivery O2 Flow Rate FiO2 04/24/20 08:10 73 153/84 04/24/20 07:00 98.3 21 94 Room Air 98.3 I & O 04/23/20 04/23/20 04/24/20 15:00 23:00 07:00 Intake Total 200 ml 300 ml Output Total 100 ml Balance 200 ml 300 ml -100 ml Physical Exam General: No acute distress, Other (drowsy but aroudable) Heart: Regular rate (SR with PVCs), Normal S1, Normal S2, No murmurs Abdomen: Soft, No tenderness Extremities: No cyanosis, No edema Skin: Other (back bruising and arm ecchymoses) Labs Labs: Laboratory Tests Test 04/23/20 11:15 04/23/20 16:05 04/24/20 09:10 SARS-CoV-2 Antigen (Rapid) Negative (NEGATIVE) Sodium Level 130 mmol/L (136-145) 129 mmol/L (136-145) Potassium Level 4.1 mmol/L (3.5-5.1) 3.3 mmol/L (3.5-5.1) Chloride Level 92 mmol/L (98-107) 92 mmol/L (98-107) Carbon Dioxide Level 29 mmol/L (21-32) 28 mmol/L (21-32) Anion Gap 9 (6-14) 9 (6-14) Blood Urea Nitrogen 4 mg/dL (8-26) 5 mg/dL (8-26) Creatinine 0.5 mg/dL (0.7-1.3) 0.5 mg/dL (0.7-1.3) Estimated GFR (Cockcroft-Gault) 163.0 163.0 Glucose Level 93 mg/dL (70-99) 107 mg/dL (70-99) Calcium Level 8.4 mg/dL (8.5-10.1) 8.7 mg/dL (8.5-10.1) Magnesium Level 1.2 mg/dL (1.8-2.4) 1.1 mg/dL (1.8-2.4) Assessment and Plan Assessmemt and Plan Problems Medical Problems: (1) Chest pain Status: Acute Comment Review of Relevant I have reviewed the following items cherelle (where applicable) has been applied. Medications: Current Medications Medications (Trade) Dose Ordered Sig/Terry Route PRN Reason Start Time Stop Time Status Last Admin Dose Admin Atorvastatin Calcium (Lipitor) 40 mg QHS PO 04/23/20 21:00 04/23/20 20:03 Metoprolol Tartrate (Lopressor) 25 mg BID PO 04/23/20 21:00 04/24/20 08:10 Justifications for Admission Other Justification ACUTE ENCEPHALOPATHY JESSICA HUTCHISON MD Apr 24, 2020 10:26
[2020-04-24 10:27] VITALS: BP 128/76
[2020-04-24] MEDS ORDERED: MAGNESIUM SULFATE 4GM 100 ML IV ONE (10:30)
--- NOTE | 2020-04-24 12:53 | PDOC ---
RUBIN TOBAR SEMICONDUCTOR ASSEMBLER 04/24/20 1253: CARDIO Progress Notes Date and Time Date of Service 04/24/20 Time of Evaluation 1250 Subjective Subjective: No Chest Pain, No shortness of breath, No Palpitations Vitals Vitals Vital Signs Date Time Temp Pulse Resp B/P (MAP) Pulse Ox O2 Delivery O2 Flow Rate FiO2 04/24/20 10:27 98.0 68 21 128/76 (93) 96 Room Air 98.0 Weight Weight [ ] Input and Output Intake and Output Intake and Output 04/24/20 06:59 Intake Total 500 ml Output Total 100 ml Balance 400 ml Intake Oral 500 ml Output Urine Total 100 ml # Voids 9 # Bowel Movements 2 Laboratory Labs Laboratory Tests Test 04/23/20 16:05 04/24/20 09:10 Sodium Level 130 mmol/L (136-145) 129 mmol/L (136-145) Potassium Level 4.1 mmol/L (3.5-5.1) 3.3 mmol/L (3.5-5.1) Chloride Level 92 mmol/L (98-107) 92 mmol/L (98-107) Carbon Dioxide Level 29 mmol/L (21-32) 28 mmol/L (21-32) Anion Gap 9 (6-14) 9 (6-14) Blood Urea Nitrogen 4 mg/dL (8-26) 5 mg/dL (8-26) Creatinine 0.5 mg/dL (0.7-1.3) 0.5 mg/dL (0.7-1.3) Estimated GFR (Cockcroft-Gault) 163.0 163.0 Glucose Level 93 mg/dL (70-99) 107 mg/dL (70-99) Calcium Level 8.4 mg/dL (8.5-10.1) 8.7 mg/dL (8.5-10.1) Magnesium Level 1.2 mg/dL (1.8-2.4) 1.1 mg/dL (1.8-2.4) Physical Exam HEENT: Neck Supple W Full Motion Chest: Symmetric LUNGS: Other (diminished bases) Heart: RRR Abdomen: Soft N/T Extremities: No Edema Neurology: alert, follow commands Assessment Assessment 1. Atypical chest pain, most probably GI etiology: AMI ruled out. Echo with LVEF 50%. The RV is mildly dilated 2. Heavy alcoholism: withdrawal as per IM 3. Dementia: on Aricept 4. CAD: remote stent, unclear details, clinically stable 5. HTN: controlled 6. Hypokalemia/hypomagnesemia/hyponatremia: Being replaced 7. Arrhythmia: None further on telemetry 9. Possible syncope vs seizure with suspected Wernicke's encephalopathy 10. Multiple falls, probably related to his alcohol use 11. COPD with continued tobaccoism Recommendations Discontinue LR Replace electrolytes as warranted Secondary prevention; continue ASA, statin, BB therapy Consider outpatient ischemic evaluation Follow up with primary elevator pilot through [facility]. Justicifation of Admission Dx: Justifications for Admission: Justification of Admission Dx: N/A JOHAN FIELDS MD 04/24/20 1963: CARDIO Progress Notes Assessment Assessment Patient seen and examined. Agree with CLINICAL CARE LEADER's assessment and plan. Chest pain with atypical features, most probably GI etiology and currently resolved. CAD status clinically stable. 2D echo showed EF 50%. Plan ischemic eval as outpatient Syncope and falls probably related to his alcohol abuse Neurology following for dementia. RUBIN TOBAR APRN Apr 24, 2020 12:53 JOHAN FIELDS MD Apr 24, 2020 18:53
--- NOTE | 2020-04-24 13:11 | NUR ---
SS following up with discharge planning. SS reviewed pt chart and discussed with pt RN. Pt is currently on room air. COVID19 negative. COVID19 negative on rapid test. COVID19 test pending for PCR. PT/OT recommended usp unit. Pt and family agreeable to usp unit. Pt accepted at both [facility], ; fax [phone], and [facility] in [place], ; fax [phone]. SS contacted pt's family and was notified that [facility] is there first preference. SS contacted [facility] and was notified that they will require the PCR test result prior to discharge. SS will continue to follow for discharge planning.
[2020-04-24 14:42] VITALS: BP 104/62
[2020-04-24] MEDS: ACETAMINOPHEN 325 MG TABLET. PO PRN (14:47)
[2020-04-24] MEDS: ENOXAPARIN 40 MG/0.4 ML SYRINGE. SQ SCH (16:50)
[2020-04-24 19:16] VITALS: BP 149/81
[2020-04-24] MEDS: ATORVASTATIN CALCIUM 40 MG TABLET. PO SCH (20:29)
[2020-04-24 23:07] VITALS: BP 145/72
[2020-04-25 03:41] VITALS: BP 160/81
[2020-04-25 06:56] LABS: BASO # 0.1 x10^3/uL (0.0-0.2); BASO % 1 % (0-3); EOS # 0.1 x10^3/uL (0.0-0.7); EOS % 1 % (0-3); HEMATOCRIT 39.4 % (39.0-53.0); HEMOGLOBIN 13.9 g/dL (13.0-17.5); LYMPH # 1.7 x10^3/uL (1.0-4.8); LYMPH % 23 % (24-48); MEAN CORPUSCULAR HEMOGLOBIN 35 pg (25-35); MEAN CORPUSCULAR HGB CONC 35 g/dL (31-37); MEAN CORPUSCULAR VOLUME 98 fL (79-100); MONO # 0.9 x10^3/uL (0.0-1.1); MONO % 13 % (0-9); NEUT # 4.6 x10^3/uL (1.8-7.7); NEUT % 61 % (31-73); PLATELET COUNT 231 x10^3/uL (140-400); RED BLOOD COUNT 4.01 x10^6/uL (4.30-5.70); RED CELL DISTRIBUTION WIDTH 12.5 % (11.5-14.5); WHITE BLOOD COUNT 7.5 x10^3/uL (4.0-11.0)
[2020-04-25 07:00] VITALS: BP 162/75
[2020-04-25 07:04] LABS: CALCIUM 8.9 mg/dL (8.5-10.1); CREATININE 0.7 mg/dL (0.7-1.3); GFR 110.5; POTASSIUM 3.9 mmol/L (3.5-5.1)
[2020-04-25] MEDS ORDERED: THIAMINE 100 MG TABLET. PO SCH (09:00)
[2020-04-25] MEDS: buPROPion SR 100 MG TABLET.SA. PO SCH (09:49)
[2020-04-25] MEDS: PANTOPRAZOLE 40 MG TABLET.DR. PO SCH (09:49)
[2020-04-25] MEDS: ASPIRIN ENTERIC COATED 81 MG TABLET.DR. PO SCH (09:49)
[2020-04-25] MEDS: POTASSIUM CHLORIDE 20 MEQ TABLET.ER. PO SCH (09:50)
[2020-04-25] MEDS: FOLIC ACID 1 MG TABLET. PO SCH (09:51)
[2020-04-25] MEDS: METOPROLOL TART IMMED RELEASE 25 MG TABLET. PO SCH (09:51)
[2020-04-25] MEDS: LISINOPRIL 20 MG TABLET PO SCH (09:52)
[2020-04-25] MEDS ORDERED: METO25TA4 PO (09:58)
[2020-04-25] MEDS ORDERED: POTA20TA4 PO (09:58)
[2020-04-25] MEDS ORDERED: ATOR40TA59 PO (09:58)
[2020-04-25] MEDS ORDERED: DOCU-153 PO (09:58)
[2020-04-25] MEDS ORDERED: PANT40TA77 PO (09:58)
[2020-04-25] MEDS ORDERED: MAGN400T5 PO (09:58)
--- NOTE | 2020-04-25 09:58 | SNU/HH DC ---
DISCHARGE ORDERS DISCHARGE INFORMATION: DISCHARGE DATE: Apr 25, 2020 FINAL DIAGNOSIS Problems Medical Problems: (1) Chest pain Status: Acute CONDITION ON DISCHARGE: Stable CODE STATUS: Code Status: Full PENITENTIARY: SNF STAY <30 DAYS: Yes POST DISCHARGE ORDERS: ACTIVITY ORDERS: Resume previous activity WEIGHT BEARING STATUS: Full weight bearing DIET AFTER DISCHARGE: Cardiac CHECKS AFTER DISCHARGE: CHECKS AFTER DISCHARGE: Check blood press - daily, Check your Temp as needed TREATMENT/EQUIPMENT ORDERS: Physical Therapy For: Evalulation/Treatment Occupational Therapy For: Evaluation/Treatment DISCHARGE MEDICATIONS: Home Meds Active Scripts Magnesium Oxide (MAGNESIUM OXIDE) 400 Mg Tablet, 1 TAB PO DAILY for Hypomagnes emia for 30 Days, #30 TAB 5 Refills Prov:JESSICA HUTCHISON MD 04/25/20 Pantoprazole Sodium (PANTOPRAZOLE SODIUM ) 40 Mg Tablet.dr, 40 MG PO DAILYAC for GERD for 30 Days, #30 TAB.SR Prov:JESSICA HUTCHISON MD 04/25/20 Docusate Sodium (DOK) 100 Mg Capsule, 100 MG PO PRN DAILY PRN for HARD STOOLS for 30 Days, #30 CAP Prov:JESSICA HUTCHISON MD 04/25/20 Potassium Chloride (KLOR-CON M20) 20 Meq Tab.er.prt, 40 MEQ PO DAILY for Hypokalemia for 30 Days, #60 TAB.SR Prov:JESSICA HUTCHISON MD 04/25/20 Metoprolol Tartrate (METOPROLOL TARTRATE) 25 Mg Tablet, 25 MG PO BID for HTN for 90 Days, #180 TAB 1 Refill Prov:JESSICA HUTCHISON MD 04/25/20 Atorvastatin Calcium (ATORVASTATIN CALCIUM) 40 Mg Tablet, 40 MG PO QHS for HLD for 90 Days, #90 TAB 1 Refill Prov:JESSICA HUTCHISON MD 04/25/20 Reported Medications Bupropion Hcl (WELLBUTRIN SR) 100 Mg Tablet.er, 1 TAB PO BID for Depression , #60 TAB 04/20/20 Aspirin (Children's Aspirin) 81 Mg Tab.chew, 81 MG PO DAILY for HF , TAB.CHEW 04/20/20 Trazodone Hcl (TRAZODONE HCL) 50 Mg Tablet, 1 TAB PO QHS for insomnia , #30 TAB 1 Refill 04/20/20 Lisinopril (LISINOPRIL) 20 Mg Tablet, 1 TAB PO DAILY for HF , #30 TAB 5 Refills 04/20/20 Discontinued Reported Medications Donepezil Hcl (DONEPEZIL HCL) 10 Mg Tablet, 1 TAB PO DAILY for Dementia , #30 TAB 5 Refills 04/20/20 Furosemide (LASIX) 20 Mg Tablet, 0.5 TAB PO DAILY for HF for 30 Days, #15 TAB 0 Refills 04/20/20 JESSICA HUTCHISON MD Apr 25, 2020 09:58
[2020-04-25] MEDS ORDERED: MAGNESIUM SULFATE 2GM 50 ML IV ONE ×2 (10:00→10:30)
--- NOTE | 2020-04-25 10:04 | PDOC3 ---
Discharge Summary Visit Information Date of Admission: Apr 20, 2020 Date of Discharge: Apr 25, 2020 Admitting Diagnosis: Chest pain, ETOh intoxication Final Diagnosis Problems Medical Problems: (1) Chest pain Status: Acute Brief Hospital Course Allergies Allergies Coded Allergies Type Severity Reaction Last Updated Verified No Known Drug Allergies 04/20/20 No Vital Signs Vital Signs Date Time Temp Pulse Resp B/P (MAP) Pulse Ox O2 Delivery O2 Flow Rate FiO2 04/25/20 09:52 65 162/75 04/25/20 07:00 98.0 16 97 Room Air 98.0 Lab Results Laboratory Tests Test 04/23/20 11:15 04/23/20 16:05 04/24/20 09:10 04/25/20 04:39 Coronavirus (PCR) Not detected (Not Detected) SARS-CoV-2 Antigen (Rapid) Negative (NEGATIVE) Sodium Level 130 mmol/L (136-145) 129 mmol/L (136-145) Potassium Level 4.1 mmol/L (3.5-5.1) 3.3 mmol/L (3.5-5.1) Chloride Level 92 mmol/L (98-107) 92 mmol/L (98-107) Carbon Dioxide Level 29 mmol/L (21-32) 28 mmol/L (21-32) Anion Gap 9 (6-14) 9 (6-14) Blood Urea Nitrogen 4 mg/dL (8-26) 5 mg/dL (8-26) Creatinine 0.5 mg/dL (0.7-1.3) 0.5 mg/dL (0.7-1.3) Estimated GFR (Cockcroft-Gault) 163.0 163.0 Glucose Level 93 mg/dL (70-99) 107 mg/dL (70-99) Calcium Level 8.4 mg/dL (8.5-10.1) 8.7 mg/dL (8.5-10.1) Magnesium Level 1.2 mg/dL (1.8-2.4) 1.1 mg/dL (1.8-2.4) White Blood Count 7.5 x10^3/uL (4.0-11.0) Red Blood Count 4.01 x10^6/uL (4.30-5.70) Hemoglobin 13.9 g/dL (13.0-17.5) Hematocrit 39.4 % (39.0-53.0) Mean Corpuscular Volume 98 fL (79-100) Mean Corpuscular Hemoglobin 35 pg (25-35) Mean Corpuscular Hemoglobin Concent 35 g/dL (31-37) Red Cell Distribution Width 12.5 % (11.5-14.5) Platelet Count 231 x10^3/uL (140-400) Neutrophils (%) (Auto) 61 % (31-73) Lymphocytes (%) (Auto) 23 % (24-48) Monocytes (%) (Auto) 13 % (0-9) Eosinophils (%) (Auto) 1 % (0-3) Basophils (%) (Auto) 1 % (0-3) Neutrophils # (Auto) 4.6 x10^3/uL (1.8-7.7) Lymphocytes # (Auto) 1.7 x10^3/uL (1.0-4.8) Monocytes # (Auto) 0.9 x10^3/uL (0.0-1.1) Eosinophils # (Auto) 0.1 x10^3/uL (0.0-0.7) Basophils # (Auto) 0.1 x10^3/uL (0.0-0.2) Test 04/25/20 06:40 Sodium Level 129 mmol/L (136-145) Potassium Level 3.9 mmol/L (3.5-5.1) Chloride Level 95 mmol/L (98-107) Carbon Dioxide Level 29 mmol/L (21-32) Anion Gap 5 (6-14) Blood Urea Nitrogen 9 mg/dL (8-26) Creatinine 0.7 mg/dL (0.7-1.3) Estimated GFR (Cockcroft-Gault) 110.5 Glucose Level 81 mg/dL (70-99) Calcium Level 8.9 mg/dL (8.5-10.1) Magnesium Level 1.5 mg/dL (1.8-2.4) Laboratory Tests Test 04/25/20 04:39 04/25/20 06:40 White Blood Count 7.5 x10^3/uL (4.0-11.0) Red Blood Count 4.01 x10^6/uL (4.30-5.70) Hemoglobin 13.9 g/dL (13.0-17.5) Hematocrit 39.4 % (39.0-53.0) Mean Corpuscular Volume 98 fL (79-100) Mean Corpuscular Hemoglobin 35 pg (25-35) Mean Corpuscular Hemoglobin Concent 35 g/dL (31-37) Red Cell Distribution Width 12.5 % (11.5-14.5) Platelet Count 231 x10^3/uL (140-400) Neutrophils (%) (Auto) 61 % (31-73) Lymphocytes (%) (Auto) 23 % (24-48) Monocytes (%) (Auto) 13 % (0-9) Eosinophils (%) (Auto) 1 % (0-3) Basophils (%) (Auto) 1 % (0-3) Neutrophils # (Auto) 4.6 x10^3/uL (1.8-7.7) Lymphocytes # (Auto) 1.7 x10^3/uL (1.0-4.8) Monocytes # (Auto) 0.9 x10^3/uL (0.0-1.1) Eosinophils # (Auto) 0.1 x10^3/uL (0.0-0.7) Basophils # (Auto) 0.1 x10^3/uL (0.0-0.2) Sodium Level 129 mmol/L (136-145) Potassium Level 3.9 mmol/L (3.5-5.1) Chloride Level 95 mmol/L (98-107) Carbon Dioxide Level 29 mmol/L (21-32) Anion Gap 5 (6-14) Blood Urea Nitrogen 9 mg/dL (8-26) Creatinine 0.7 mg/dL (0.7-1.3) Estimated GFR (Cockcroft-Gault) 110.5 Glucose Level 81 mg/dL (70-99) Calcium Level 8.9 mg/dL (8.5-10.1) Magnesium Level 1.5 mg/dL (1.8-2.4) Brief Hospital Course Mr Shen is a 74 year old male with a known past medical history including alcoholism and hypertension now presenting emergency department after reported syncopal episode. According to EMS they were called and the patient has been complaining of chest pain and then had a near syncopal event while at home. States that the family found him on the ground where he became slightly unconscious and then stated that he had chest compressions and give the patient a sublingual nitroglycerin. Upon arrival EMS stated that the patient was arousable and oriented x1. Uncertain the patient had a fall. Patient is complaining of pain everywhere stating that "everything hurts and I feel terrible everywhere." Patient does admit to chest pain but cannot remember if he fell either. Patient appears to be a poor historian at that time. ETOH was 101 on admit. 04/21: No acute events overnight. Patient seen and examined working with [facility] therapy. Patient able to to transfer from bed to recliner. Patient's chart, labs, images were reviewed and discussed with RN 04/22: No acute events overnight. Patient with mental status improvement and more awake. Able to tolerate diet without any complications. Potassium of 2.8 and magnesium of 1.7. IV and PO replacement pending. 04/23: Very drowsy today, confused. Afebrile. No telemetry events. No pain complaints. D/w nursing and social work as well as therapy patient needs skilled services. 04/24: More alert today. Mag 1.1, K 3.3. Still very weak. No SOB or CP. Amenable to skilled services given his weakness. Day of d/c improved, no complaints other than weakness. Mag up to 1.5, replaced, K 3.9. 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 Syncope related to alcohol, does not sound like he is having convulsive seizures Alcoholism Gait disorder, frequent falls Coronary artery disease with atypical chest pain, hypertension, hypokalemia, hypomagnesemia, hyponatremia, COPD Plan: Consider dementia prevention protocol Provide adequate lighting (open curtains during the day, turn the lights off at night) Provide frequent personal contact with family, friends, and staff or TV Encourage early and frequent mobilization Rehab screening ordered Avoid physical restraints, catheters or tubes, and benzodiazepines Nutrition consult if there is malnutrition or concern for vitamin deficiencies Greater than 30 minutes spent on d/c Discharge Information Condition at Discharge: Improved Follow Up: Weeks Disposition/Orders: D/C to Another Facility Scheduled Aspirin (Children's Aspirin) 81 Mg Tab.chew, 81 MG PO DAILY for HF , (Reported) Entered as Reported by: KERI ESQUIVEL on 04/20/20 1015 Last Action: Continued on 04/22/20 1004 by LOWELL DOCKERY MD Atorvastatin Calcium (Atorvastatin Calcium) 40 Mg Tablet, 40 MG PO QHS for HLD for 90 Days, #90 Ref 1 Prescribed by: JESSICA HUTCHISON MD on 04/25/20 0958 Bupropion Hcl (Wellbutrin Sr) 100 Mg Tablet.er, 1 TAB PO BID for Depression , #60 (Reported) Entered as Reported by: KERI ESQUIVEL on 04/20/20 1015 Last Action: Continued on 04/22/20 1004 by LOWELL DOCKERY MD Lisinopril (Lisinopril) 20 Mg Tablet, 1 TAB PO DAILY for HF , #30 Ref 5 (Reported) Entered as Reported by: KERI ESQUIVEL on 04/20/20 1015 Last Action: Continued on 04/22/20 1004 by LOWELL DOCKERY MD Magnesium Oxide (Magnesium Oxide) 400 Mg Tablet, 1 TAB PO DAILY for Hypomagnesemia for 30 Days, #30 Ref 5 Prescribed by: JESSICA HUTCHISON MD on 04/25/20 0958 Metoprolol Tartrate (Metoprolol Tartrate) 25 Mg Tablet, 25 MG PO BID for HTN for 90 Days, #180 Ref 1 Prescribed by: JESSICA HUTCHISON MD on 04/25/20 0958 Pantoprazole Sodium (Pantoprazole Sodium ) 40 Mg Tablet.dr, 40 MG PO DAILYAC for GERD for 30 Days, #30 Prescribed by: JESSICA HUTCHISON MD on 04/25/20 0958 Potassium Chloride (Klor-Con M20) 20 Meq Tab.er.prt, 40 MEQ PO DAILY for Hypokalemia for 30 Days, #60 Prescribed by: JESSICA HUTCHISON MD on 04/25/20 0958 Trazodone Hcl (Trazodone Hcl) 50 Mg Tablet, 1 TAB PO QHS for insomnia , #30 Ref 1 (Reported) Entered as Reported by: KERI ESQUIVEL on 04/20/201014 Last Action: New Order on 04/20/201014 by KERI ESQUIVEL Scheduled PRN Docusate Sodium (Dok) 100 Mg Capsule, 100 MG PO PRN DAILY PRN for HARD STOOLS for 30 Days, #30 Prescribed by: JESSICA HUTCHISON MD on 04/25/20 0958 Discontinued Medications Donepezil Hcl (Donepezil Hcl) 10 Mg Tablet, 1 TAB PO DAILY for Dementia , #30 Ref 5 (Reported) Entered as Reported by: KERI ESQUIVEL on 04/20/201014 Last Action: HELD on 04/22/20 1004 by LOWELL DOCKERY MD Furosemide (Lasix) 20 Mg Tablet, 0.5 TAB PO DAILY for HF for 30 Days, #15 Ref 0 (Reported) Entered as Reported by: KERI ESQUIVEL on 04/20/201014 Last Action: HELD on 04/20/20 1406 by VIC THOMPSON Justicifation of Admission Dx: Justifications for Admission: Justification of Admission Dx: N/A JESSICA HUTCHISON MD Apr 25, 2020 10:04
[2020-04-25 10:34] VITALS: BP 169/80
--- NOTE | 2020-04-25 10:54 | PDOC ---
RUBIN TOBAR FINANCIAL SERVICES EDUCATION CONSULTANT 04/25/20 1054: CARDIO Progress Notes Date and Time Date of Service 04/25/20 Time of Evaluation 1050 Subjective Subjective: No Chest Pain, No shortness of breath, No Palpitations Vitals Vitals Vital Signs Date Time Temp Pulse Resp B/P (MAP) Pulse Ox O2 Delivery O2 Flow Rate FiO2 04/25/20 10:34 97.9 71 16 169/80 (109) 97 Room Air 97.9 Weight Weight [ ] Input and Output Intake and Output Intake and Output 04/25/20 07:00 Intake Total 500 ml Output Total 277 ml Balance 223 ml Intake Oral 500 ml Output Urine Total 277 ml # Voids 1 # Bowel Movements 1 Laboratory Labs Laboratory Tests Test 04/25/20 04:39 04/25/20 06:40 White Blood Count 7.5 x10^3/uL (4.0-11.0) Red Blood Count 4.01 x10^6/uL (4.30-5.70) Hemoglobin 13.9 g/dL (13.0-17.5) Hematocrit 39.4 % (39.0-53.0) Mean Corpuscular Volume 98 fL (79-100) Mean Corpuscular Hemoglobin 35 pg (25-35) Mean Corpuscular Hemoglobin Concent 35 g/dL (31-37) Red Cell Distribution Width 12.5 % (11.5-14.5) Platelet Count 231 x10^3/uL (140-400) Neutrophils (%) (Auto) 61 % (31-73) Lymphocytes (%) (Auto) 23 % (24-48) Monocytes (%) (Auto) 13 % (0-9) Eosinophils (%) (Auto) 1 % (0-3) Basophils (%) (Auto) 1 % (0-3) Neutrophils # (Auto) 4.6 x10^3/uL (1.8-7.7) Lymphocytes # (Auto) 1.7 x10^3/uL (1.0-4.8) Monocytes # (Auto) 0.9 x10^3/uL (0.0-1.1) Eosinophils # (Auto) 0.1 x10^3/uL (0.0-0.7) Basophils # (Auto) 0.1 x10^3/uL (0.0-0.2) Sodium Level 129 mmol/L (136-145) Potassium Level 3.9 mmol/L (3.5-5.1) Chloride Level 95 mmol/L (98-107) Carbon Dioxide Level 29 mmol/L (21-32) Anion Gap 5 (6-14) Blood Urea Nitrogen 9 mg/dL (8-26) Creatinine 0.7 mg/dL (0.7-1.3) Estimated GFR (Cockcroft-Gault) 110.5 Glucose Level 81 mg/dL (70-99) Calcium Level 8.9 mg/dL (8.5-10.1) Magnesium Level 1.5 mg/dL (1.8-2.4) Physical Exam HEENT: Neck Supple W Full Motion Chest: Symmetric LUNGS: Other (diminished bases) Heart: RRR Abdomen: Soft N/T Extremities: No Edema Neurology: alert, follow commands, other (drowsy ) Assessment Assessment 1. Atypical chest pain, most probably GI etiology: AMI ruled out. Echo with LVEF 50%. The RV is mildly dilated 2. Heavy alcoholism: encouraged cessation 3. Dementia: on Aricept 4. CAD: remote stent, unclear details, clinically stable 5. HTN: controlled 6. Hypomagnesemia; being replaced 7. Arrhythmia: None further on telemetry 9. Possible syncope vs seizure with suspected Wernicke's encephalopathy 10. Multiple falls, probably related to his alcohol use 11. COPD with continued tobaccoism Recommendations Replace electrolytes as warranted Secondary prevention; continue ASA, statin, BB therapy Consider outpatient ischemic evaluation Follow up with primary transportation officer at [facility]. Justicifation of Admission Dx: Justifications for Admission: Justification of Admission Dx: N/A JOHAN FIELDS MD 04/25/20 1550: CARDIO Progress Notes Assessment Assessment Patient seen and examined. Agree with PUBLIC HEALTH POLICY ANALYST's assessment and plan. Chest pain with atypical features, most probably GI etiology and currently resolved. CAD status clinically stable. 2D echo showed EF 50%. Plan ischemic eval as outpatient Syncope and falls probably related to his alcohol abuse Consider outpatient ischemic evaluation with primary transportation officer at [facility] RUBIN TOBAR APRN Apr 25, 2020 10:54 JOHAN FIELDS MD Apr 25, 2020 15:50
--- NOTE | 2020-04-25 10:55 | NUR ---
SS following up with discharge planning. SS reviewed pt chart and discussed with pt RN. Pt is currently on room air. COVID19 negative. PT/OT recommended detention unit. Pt accepted at [facility], ; fax [phone]. Discharge orders received. SS phoned and faxed discharge orders and negative COVID19 to [facility]. Pt will discharge today and go to [facility]. [place] to provide transportation and will notify SS of last picker time. Pt, pt's RN, and pt's spouse notified.
--- NOTE | 2020-04-25 11:09 | NUR ---
SS following up with discharge planning. Transportation scheduled for 1430. Pt, pt's spouse, and pt's RN notified.
--- NOTE | 2020-04-25 11:24 | PDOC ---
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 Additional laboratory studies negative Neuropathy, most likely also alcohol-related Syncope related to alcohol, does not sound like he is having convulsive seizures Alcoholism Gait disorder, frequent falls Coronary artery disease with atypical chest pain, hypertension, hypokalemia, hypomagnesemia, hyponatremia, COPD Plan Alcohol withdrawal protocol including thiamine Rehabilitation modalities senior living Neurology signs off Subjective No complaints Objective Vital Signs Date Time Temp Pulse Resp B/P (MAP) Pulse Ox O2 Delivery O2 Flow Rate FiO2 04/25/20 10:34 97.9 71 16 169/80 (109) 97 Room Air 97.9 Intake and Output 04/25/20 07:00 Intake Total 500 ml Output Total 277 ml Balance 223 ml Intake Oral 500 ml Output Urine Total 277 ml # Voids 1 # Bowel Movements 1 PHYSICAL EXAM Alert. Oriented only to person. PERRL. EOMI. CN: Tendency for left eye ptosis, otherwise no focal findings. Muscle tone: normal. Muscle strength: 5/5 DTR: 1+ Plantar reflex: Flexor Gait: not examined in bed. Sensory exam: Stocking loss. No cerebellar signs elicited. Review of Relevant I have reviewed the following items cherelle (where applicable) has been applied. Labs Laboratory Tests Test 04/23/20 16:05 04/24/20 09:10 04/25/20 04:39 04/25/20 06:40 Sodium Level 130 mmol/L (136-145) 129 mmol/L (136-145) 129 mmol/L (136-145) Potassium Level 4.1 mmol/L (3.5-5.1) 3.3 mmol/L (3.5-5.1) 3.9 mmol/L (3.5-5.1) Chloride Level 92 mmol/L (98-107) 92 mmol/L (98-107) 95 mmol/L (98-107) Carbon Dioxide Level 29 mmol/L (21-32) 28 mmol/L (21-32) 29 mmol/L (21-32) Anion Gap 9 (6-14) 9 (6-14) 5 (6-14) Blood Urea Nitrogen 4 mg/dL (8-26) 5 mg/dL (8-26) 9 mg/dL (8-26) Creatinine 0.5 mg/dL (0.7-1.3) 0.5 mg/dL (0.7-1.3) 0.7 mg/dL (0.7-1.3) Estimated GFR (Cockcroft-Gault) 163.0 163.0 110.5 Glucose Level 93 mg/dL (70-99) 107 mg/dL (70-99) 81 mg/dL (70-99) Calcium Level 8.4 mg/dL (8.5-10.1) 8.7 mg/dL (8.5-10.1) 8.9 mg/dL (8.5-10.1) Magnesium Level 1.2 mg/dL (1.8-2.4) 1.1 mg/dL (1.8-2.4) 1.5 mg/dL (1.8-2.4) White Blood Count 7.5 x10^3/uL (4.0-11.0) Red Blood Count 4.01 x10^6/uL (4.30-5.70) Hemoglobin 13.9 g/dL (13.0-17.5) Hematocrit 39.4 % (39.0-53.0) Mean Corpuscular Volume 98 fL (79-100) Mean Corpuscular Hemoglobin 35 pg (25-35) Mean Corpuscular Hemoglobin Concent 35 g/dL (31-37) Red Cell Distribution Width 12.5 % (11.5-14.5) Platelet Count 231 x10^3/uL (140-400) Neutrophils (%) (Auto) 61 % (31-73) Lymphocytes (%) (Auto) 23 % (24-48) Monocytes (%) (Auto) 13 % (0-9) Eosinophils (%) (Auto) 1 % (0-3) Basophils (%) (Auto) 1 % (0-3) Neutrophils # (Auto) 4.6 x10^3/uL (1.8-7.7) Lymphocytes # (Auto) 1.7 x10^3/uL (1.0-4.8) Monocytes # (Auto) 0.9 x10^3/uL (0.0-1.1) Eosinophils # (Auto) 0.1 x10^3/uL (0.0-0.7) Basophils # (Auto) 0.1 x10^3/uL (0.0-0.2) Laboratory Tests Test 04/25/20 04:39 04/25/20 06:40 White Blood Count 7.5 x10^3/uL (4.0-11.0) Red Blood Count 4.01 x10^6/uL (4.30-5.70) Hemoglobin 13.9 g/dL (13.0-17.5) Hematocrit 39.4 % (39.0-53.0) Mean Corpuscular Volume 98 fL (79-100) Mean Corpuscular Hemoglobin 35 pg (25-35) Mean Corpuscular Hemoglobin Concent 35 g/dL (31-37) Red Cell Distribution Width 12.5 % (11.5-14.5) Platelet Count 231 x10^3/uL (140-400) Neutrophils (%) (Auto) 61 % (31-73) Lymphocytes (%) (Auto) 23 % (24-48) Monocytes (%) (Auto) 13 % (0-9) Eosinophils (%) (Auto) 1 % (0-3) Basophils (%) (Auto) 1 % (0-3) Neutrophils # (Auto) 4.6 x10^3/uL (1.8-7.7) Lymphocytes # (Auto) 1.7 x10^3/uL (1.0-4.8) Monocytes # (Auto) 0.9 x10^3/uL (0.0-1.1) Eosinophils # (Auto) 0.1 x10^3/uL (0.0-0.7) Basophils # (Auto) 0.1 x10^3/uL (0.0-0.2) Sodium Level 129 mmol/L (136-145) Potassium Level 3.9 mmol/L (3.5-5.1) Chloride Level 95 mmol/L (98-107) Carbon Dioxide Level 29 mmol/L (21-32) Anion Gap 5 (6-14) Blood Urea Nitrogen 9 mg/dL (8-26) Creatinine 0.7 mg/dL (0.7-1.3) Estimated GFR (Cockcroft-Gault) 110.5 Glucose Level 81 mg/dL (70-99) Calcium Level 8.9 mg/dL (8.5-10.1) Magnesium Level 1.5 mg/dL (1.8-2.4) Medications Current Medications Aspirin (Aspirin Chewable) 324 mg 1X ONCE PO ; Start 04/20/20 at 01:15; Stop 04/20/20 at 01:25; Status DC Morphine Sulfate (Morphine Sulfate) 4 mg 1X ONCE IV Last administered on 04/20/20at 02:19; Start 04/20/20 at 02:00; Stop 04/20/20 at 02:02; Status DC Potassium Chloride/Water 100 ml @ 100 mls/hr Q1H IV ; Start 04/20/20 at 01:45; Stop 04/20/20 at 03:44; Status UNV Potassium Chloride/Water 100 ml @ 100 mls/hr Q1H IV Last administered on 04/20/20at 06:54; Start 04/20/20 at 02:00; Stop 04/20/20 at 05:59; Status DC Morphine Sulfate (Morphine Sulfate) 2 mg 1X ONCE IV Last administered on 04/20/20at 03:16; Start 04/20/20 at 03:30; Stop 04/20/20 at 03:31; Status DC Ondansetron HCl (Zofran) 4 mg PRN Q8HRS PRN IV NAUSEA/VOMITING 1ST CHOICE; Start 04/20/20 at 03:30; Stop 04/21/20 at 03:29; Status DC Morphine Sulfate (Morphine Sulfate) 4 mg PRN Q2HR PRN IV SEVERE PAIN 7-10 Last administered on 04/20/20at 04:25; Start 04/20/20 at 03:30; Stop 04/21/20 at 03:29; Status DC Lorazepam (Ativan Inj) 2 mg PRN Q15MIN PRN IV SEE COMMENTS; Start 04/20/20 at 06:15; Status UNV Lorazepam (Ativan Inj) 4 mg PRN Q15MIN PRN IV SEE COMMENTS; Start 04/20/20 at 06:15; Status UNV Lorazepam (Ativan Inj) 2 mg PRN Q1HR PRN IV For CIWA 8-14 Last administered on 04/24/20at 20:31; Start 04/20/20 at 06:30 Lorazepam (Ativan Inj) 4 mg PRN Q1HR PRN IV For CIWA 15 or greater; Start 04/20/20 at 06:30 Thiamine HCl 300 mg/Folic Acid 1 mg/Sodium Chloride 1,003.2 ml @ 200 mls/ hr Q5H1M IV Last administered on 04/20/20at 16:01; Start 04/20/20 at 11:00; Stop 04/20/20 at 21:01; Status DC Potassium Chloride/Water 100 ml @ 50 mls/hr Q1HR IV Last administered on 04/20/20at 16:00; Start 04/20/20 at 11:00; Stop 04/20/20 at 16:59; Status DC Sennosides (Senna) 17.2 mg PRN BID PRN PO CONSTIPATION; Start 04/20/20 at 12:00 Docusate Sodium (Colace) 100 mg PRN DAILY PRN PO HARD STOOLS; Start 04/20/20 at 12:00 Ondansetron HCl (Zofran) 4 mg PRN Q6HRS PRN IVP NAUSEA/VOMITING; Start 04/20/20 at 12:00 Aspirin (Ecotrin) 81 mg DAILYWBKFT PO Last administered on 04/25/20at 09:49; Start 04/21/20 at 08:00 Dextrose (Dextrose 50%-Water Syringe) 12.5 gm PRN Q15MIN PRN IV SEE COMMENTS; Start 04/20/20 at 12:00 Acetaminophen (Tylenol) 650 mg PRN Q4HRS PRN PO TEMP OVER 100.4F OR MILD PAIN Last administered on 04/24/20 14:47; Start 04/20/20 at 12:00 Enoxaparin Sodium (Lovenox 40mg Syringe) 40 mg Q24H SQ Last administered on 04/24/20at 16:50; Start 04/20/20 at 16:00 Magnesium Sulfate 100 ml @ 25 mls/hr 1X ONCE IV Last administered on 04/20/20at 14:15; Start 04/20/20 at 14:15; Stop 04/20/20 at 18:14; Status DC Pantoprazole Sodium (Protonix) 40 mg 1X ONCE PO ; Start 04/20/20 at 14:15; Stop 04/20/20 at 14:16; Status DC Pantoprazole Sodium (Protonix) 40 mg DAILYAC PO Last administered on 04/25/20 09:49; Start 04/21/20 at 07:30 Famotidine (Pepcid Vial) 20 mg 1X ONCE IVP Last administered on 04/20/20at 18:11; Start 04/20/20 at 15:30; Stop 04/20/20 at 15:34; Status DC Labetalol HCl (Normodyne Iv Push) 10 mg PRN Q2HR PRN IVP HYPERTENSION Last administered on 04/23/20at 21:50; Start 04/20/20 at 15:45 Ringer's Solution 1,000 ml @ 100 mls/hr Q10H IV Last administered on 04/23/20at 20:03; Start 04/21/20 at 04:00; Stop 04/24/20 at 13:43; Status DC Thiamine HCl 300 mg/Dextrose 53 ml @ 102 mls/hr DAILY IV Last administered on 04/24/20at 08:09; Start 04/21/20 at 09:00; Stop 04/25/20 at 08:59; Status DC Folic Acid (Folic Acid) 1 mg DAILY PO Last administered on 04/25/20at 09:51; Start 04/21/20 at 09:00 Aspirin (Aspirin Chewable) 81 mg DAILY PO ; Start 04/23/20 at 09:00; Status UNV Bupropion HCl (Wellbutrin Sr) 100 mg BID PO Last administered on 04/25/20 09:49; Start 04/22/20 at 11:00 Lisinopril (Prinivil) 20 mg DAILY PO Last administered on 04/25/20at 09:52; Start 04/22/20 at 11:00 Potassium Chloride (Klor-Con) 40 meq BIDWMEALS PO Last administered on 04/25/20at 09:50; Start 04/22/20 at 17:00 Potassium Chloride/Water 100 ml @ 100 mls/hr Q1H IV Last administered on 04/22/20at 19:15; Start 04/22/20 at 13:00; Stop 04/22/20 at 18:59; Status DC Magnesium Sulfate 50 ml @ 25 mls/hr 1X ONCE IV Last administered on 04/22/20at 13:49; Start 04/22/20 at 14:00; Stop 04/22/20 at 15:59; Status DC Atorvastatin Calcium (Lipitor) 40 mg QHS PO Last administered on 04/24/20at 20:29; Start 04/23/20 at 21:00 Metoprolol Tartrate (Lopressor) 25 mg BID PO Last administered on 04/25/20at 09:51; Start 04/23/20 at 21:00 Thiamine Mononitrate (Vitamin B-1) 300 mg DAILY PO Last administered on 04/25/20at 09:49; Start 04/25/20 at 09:00 Magnesium Sulfate 100 ml @ 25 mls/hr 1X ONCE IV Last administered on 04/24/20at 13:02; Start 04/24/20 at 10:30; Stop 04/24/20 at 14:29; Status DC Magnesium Sulfate 50 ml @ 25 mls/hr 1X ONCE IV Last administered on 04/25/20at 10:26; Start 04/25/20 at 10:00; Stop 04/25/20 at 11:59 Magnesium Sulfate 50 ml @ 25 mls/hr 1X ONCE IV ; Start 04/25/20 at 10:30; Stop 04/25/20 at 12:29 Active Scripts Active Magnesium Oxide 400 Mg Tablet 1 Tab PO DAILY 30 Days Pantoprazole Sodium (Pantoprazole Sodium) 40 Mg Tablet.dr 40 Mg PO DAILYAC 30 Days Dok (Docusate Sodium) 100 Mg Capsule 100 Mg PO PRN DAILY PRN 30 Days Klor-Con M20 (Potassium Chloride) 20 Meq Tab.er.prt 40 Meq PO DAILY 30 Days Metoprolol Tartrate 25 Mg Tablet 25 Mg PO BID 90 Days Atorvastatin Calcium 40 Mg Tablet 40 Mg PO QHS 90 Days Reported Wellbutrin Sr (Bupropion Hcl) 100 Mg Tablet.er 1 Tab PO BID Children's Aspirin (Aspirin) 81 Mg Tab.chew 81 Mg PO DAILY Trazodone Hcl 50 Mg Tablet 1 Tab PO QHS Lisinopril 20 Mg Tablet 1 Tab PO DAILY Vitals/I & O Vital Sign - Last 24 Hours 04/24/20 04/24/20 04/24/20 04/24/20 14:42 19:16 20:29 23:07 Temp 98.2 98.1 98.2 98.1 Pulse 69 73 73 69 Resp 21 19 19 B/P (MAP) 104/62 (76) 149/81 (103) 149/81 145/72 (96) Pulse Ox 99 97 96 O2 Delivery Room Air Room Air Room Air 2/304/25/20 04/25/20 04/25/20 03:41 07:00 09:51 09:52 Temp 97.9 98.0 97.9 98.0 Pulse 68 65 65 65 Resp 16 16 B/P (MAP) 160/81 (107) 162/75 (104) 162/75 162/75 Pulse Ox 95 97 O2 Delivery Room Air Room Air 04/25/20 10:34 Temp 97.9 97.9 Pulse 71 Resp 16 B/P (MAP) 169/80 (109) Pulse Ox 97 O2 Delivery Room Air Intake and Output 04/24/20 04/24/20 04/25/20 15:00 23:00 07:00 Intake Total 500 ml Output Total 125 ml 152 ml Balance -125 ml 500 ml -152 ml Justicifation of Admission Dx: Justifications for Admission: Justification of Admission Dx: N/A GLENYS JACOBS MD Apr 25, 2020 11:24
--- NOTE | 2020-04-25 14:34 | NUR ---
Discharge Note: NAHID SMYTH Discharge instructions and discharge home medications reviewed with nurse Beckie wang and a copy given transport. Schedule MPI instructions and date given to daughter Javier and discussed with nurse. All questions have been answered and understanding verbalized. Discontinued iv line and catheter intact. Patient discharged to [facility].
[2020-08-10] MEDS ORDERED: CIPR250T PO (08:45)
[2020-08-10] MEDS ORDERED: METR-111 PO (08:45)
== END 2020-04-25 15:25 | DRG 391 ==
LOC: ER 01:06 → 2 NORTH 03:36 → OBSVTOIN 11:50
PROVIDERS: ADMIT Internal Medicine; ATTEND Internal Medicine
DX: K21.9 Gastro-esophageal reflux disease without esophagitis (principal); G92 Toxic encephalopathy; E87.1 Hypo-osmolality and hyponatremia; F10.27 Alcohol dependence with alcohol-induced persisting dementia; E78.00 Pure hypercholesterolemia, unspecified; E78.5 Hyperlipidemia, unspecified; E83.42 Hypomagnesemia; E87.6 Hypokalemia; F10.229 Alcohol dependence with intoxication, unspecified; F17.210 Nicotine dependence, cigarettes, uncomplicated; I10 Essential (primary) hypertension; I25.10 Atherosclerotic heart disease of native coronary artery without angina pectoris; J44.9 Chronic obstructive pulmonary disease, unspecified; M19.90 Unspecified osteoarthritis, unspecified site; Z20.822 Contact with and (suspected) exposure to COVID-19; G30.9 Alzheimer's disease, unspecified; F02.80 Dementia in other diseases classified elsewhere, unspecified severity, without behavioral disturbance, psychotic disturbance, mood disturbance, and anxiety; G62.1 Alcoholic polyneuropathy; Z85.828 Personal history of other malignant neoplasm of skin; Z95.5 Presence of coronary angioplasty implant and graft; I25.2 Old myocardial infarction
CPT/HCPCS: 36415; 70450; 71045; 80048; 80053; 80061; 81001; 82306; 82550; 82607; 83690; 83735; 83880; 84100; 84443; 84484; 85025; 85379; 85610; 87426; 93005; 93306; 96374; 96376; 99285; G0378; G0379; G0480; J1650; J2060; J2270; J3411; J3475; J3480; J3490; J7030; J7060; J7120; P9612; U0003; 97116-GP; 97530-GO; 97530-GP; 97535-GO